=== PATIENT | male | born 1970 | race Hispanic/Latino ===

== ENCOUNTER 2020-02-27 22:43 | Emergency (ER) | payer OTHER, SELFPAY ==
[2020-02-27 22:50] VITALS: BP 146/85; PULSE 81; RESP 16; TEMP 36.4; O2SAT 97; BMI 173.4
--- NOTE | 2020-02-27 22:50 | ED_ITS ---
HPI - Chest Pain General Chief Complaint: Chest Pain Stated Complaint: Chest pain Time Seen by Provider: 02/27/20 22:49 Source: patient and family Mode of arrival: Ambulatory Limitations: no limitations History of Present Illness HPI narrative: 49-year-old male former smoker with a history of pericarditis and gallbladder disease presents with his in the chief complaint 2 weeks of sharp and stabbing right-sided chest pain in the absence of other symptoms. He states his pain is worse with a big deep breath and sometimes with picking up heavy objects. He denies any shortness of breath. He denies any nausea or vomiting. He denies any unexplained diaphoresis. He has had no history of blood clot or recent travel. Patient states that this feels different thin his pericarditis 1 year ago. He denies any exertional symptoms. MD complaint: chest pain Onset (ago): week(s) Duration: intermittent Pain location: right chest Severity: mild Quality: sharp Pain radiation: none Relieving factors: remaining still Exacerbating factors: inspiration and movement Treatments prior to arrival chest pain: none Related Data Allergies Allergy/AdvReac Type Severity Reaction Status Date / Time ibuprofen Allergy Verified 02/27/20 23:06 tramadol Allergy Verified 02/27/20 23:14 Review of Systems Constitutional Constitutional: Denies chills, Denies fatigue, Denies fever(s), Denies frequent falls, Denies lethargy and Denies weakness Eyes Eyes: Denies change in vision, Denies eye discharge, Denies irritation and Denies loss of vision ENT Ears, Nose, Mouth, and Throat: Denies change in voice, Denies dizziness, Denies neck pain, Denies sore throat and Denies throat swelling Cardiovascular Cardiovascular: Reports chest pain, Denies irregular heart rhythm, Denies lightheadedness, Denies palpitations, Denies dyspnea, Denies dyspnea on exertion and Denies orthopnea Respiratory Respiratory: Denies cough, Denies dyspnea, Denies dyspnea on exertion and Denies wheezing Gastrointestinal Gastrointestinal: Denies abdominal pain, Denies change in bowel habits, Denies diarrhea, Denies nausea and Denies vomiting Genitourinary Genitourinary: Denies hematuria, Denies flank pain, Denies urinary incontinence and Denies urinary urgency Musculoskeletal Musculoskeletal: Denies back pain, Denies muscle weakness, Denies neck pain, Denies numbness and Denies tingling Integumentary/Breasts Skin/Breast: Denies pruritus, Denies erythema, Denies rash and Denies wounds Neurologic Neurologic: Denies behavioral changes, Denies confusion, Denies dizziness, Denies frequent falls, Denies loss of vision, Denies numbness, Denies tingling and Denies weakness Psychiatric Psychiatric: Denies anxiety, Denies behavioral changes, Denies confusion, Denies depression, Denies homicidal ideation and Denies suicidal ideation Endocrine Endocrine: Denies fatigue, Denies flushing and Denies palpitations Hematologic/Lymphatic Hematologic/Lymphatic: Denies easy bruising Allergic/Immunologic Allergic/Immunologic: Denies urticaria, Denies throat swelling and Denies wheezing Patient History Medical History (Updated 02/28/20 @ 00:05 by Geovany Poe DO) Pericarditis (Acute) Social History Smoking Status: Former smoker Exam Narrative Exam Narrative: GENERAL: [49] year old patient appears stated age. Well- nourished, well-developed patient, in mild distress. HEAD: Atraumatic. Normocephalic. EYES: Pupils equal round and reactive. Extraocular motions intact. No scleral ic terus. No injection or drainage. ENT: Nose without bleeding, purulent drainage. Throat without erythema, tonsillar hypertrophy or exudate. Airway patent. NECK: Trachea midline. Non tender CARDIOVASCULAR: Regular rate and rhythm without murmurs, gallops, or rubs. RESPIRATORY: Clear to auscultation. Breath sounds equal bilaterally. No wheezes, rales, or rhonchi. GASTROINTESTINAL: Abdomen soft, non-tender, nondistended. EXTREMITIES: No edema or joint tenderness. BACK: Nontender without deformity or crepitance. No flank tenderness. NEURO: AOx3. SKIN: No rash or erythema of visible areas Initial Vital Signs Initial Vital Signs: Vital Signs Temperature 97.6 F 02/27/20 22:50 Pulse Rate 81 02/27/20 22:50 Respiratory Rate 16 02/27/20 22:50 Blood Pressure 146/85 H 02/27/20 22:50 Pulse Oximetry 97 02/27/20 22:50 Scores HEART Score Heart Score history: Slightly Suspicious Heart Score EKG: Normal Heart Score Age: 45-64 years old Heart Score risk factors: 1-2 risk factors Heart Score troponin: < or = to normal limit Heart Score Total: 2 Course Orders Ordered: ED Orders 02/27/20 22:59 XR chest 1V Stat EKG-12 Lead Stat 02/27/20 23:00 Complete Blood Count AUTO DIFF Stat Comprehensive Metabolic Panel Stat D Dimer Stat Lipase Stat Troponin & CK Cardiac Panel Stat 02/27/20 23:59 EKG-12 Lead Stat Discontinued Medications Al Hydrox/Mg Hydrox/Simethicone 20 ml/ Lidocaine HCl 15 ml 0 ml PO NOW ONE Stop: 02/27/20 23:01 Last Admin: 02/27/20 23:24 Dose: 35 ml Documented by: EMMA Sodium Chloride (Normal Saline 0.9%) 1,000 mls @ 150 mls/hr IV CONT GIBRAN Last Infusion: 02/28/20 01:05 Dose: 0 mls/hr Documented by: Admin: 02/27/20 23:24 Dose: 150 mls/hr Documented by: EMMA Ketorolac Tromethamine (Toradol) 15 mg IV NOW ONE Stop: 02/27/20 23:00 Last Admin: 02/27/20 23:25 Dose: 15 mg Documented by: EMMA Pantoprazole Sodium (Protonix) 40 mg IV NOW ONE Stop: 02/27/20 23:00 Last Admin: 02/27/20 23:25 Dose: 40 mg Documented by: EMMA Vital Signs Vital signs: Vital Signs - 8 hr 02/27/20 22:50 02/28/20 00:59 Temperature 97.6 F Pulse Rate 81 56 L Respiratory Rate 16 12 Blood Pressure 146/85 H Blood Pressure [Left Arm] 112/62 Pulse Oximetry 97 95 MDM - Chest Pain Lab Data Result diagrams: 02/27/20 23:00 02/27/20 23:00 Labs: Lab Results 02/27/20 02/27/20 02/27/20 Range/Units 23:00 23:00 23:00 WBC 9.7 (4.5-11.0) X10^3/uL RBC 4.98 (4.5-5.9) X10^6/uL Hgb 15.0 (13.5-17.5) g/dL Hct 43.9 (41-53) % MCV 88.2 (80-100) fL MCH 30.2 (26-34) PG MCHC 34.2 (30-36) % RDW 13.1 (11.6-14.8) % Plt Count 222 (150-400) X10^3/uL Neut % (Auto) 59.1 (50-75) % Lymph % (Auto) 27.0 (25-40) % [place] % (Auto) 11.9 (3-14) % Eos % (Auto) 1.6 L (2-4) % Baso % (Auto) 0.4 (0-2) % Neut # (Auto) 5700 (2293-0782) /uL Lymph # (Auto) 2600 (8543-8426) /uL [place] # (Auto) 1200 H (0-900) /uL Eos # (Auto) 200 (0-450) /uL Baso # (Auto) 0 (0-100) /uL D-Dimer < 200 (<230) ng/mL Sodium 137 (137-145) mmol/L Potassium 4.1 (3.4-5.1) mmol/L Chloride 104 (98-107) mmol/L Carbon Dioxide 25 (22-32) mmol/L BUN 23 H (9-20) mg/dL Creatinine 0.99 (0.66-1.25) mg/dL Estimated GFR > 60.0 (>60) mL/min BUN/Creatinine Ratio 23.2 H (6-22) Glucose 91 (70-100) mg/dL Calcium 9.5 (8.4-10.2) mg/dL Total Bilirubin 0.3 (0.2-1.3) mg/dL AST 26 (17-59) IU/L ALT 32 (<50) IU/L Alkaline Phosphatase 70 (38-126) U/L Total Creatine Kinase 161 (55-170) U/L CK-MB (CK-2) 1.74 (<2.37) ng/mL CK-MB (CK-2) Rel Index 1.1 L (1.5-5.0) % Troponin I < 0.012 (0.01-0.034) ng/mL Total Protein 7.3 (6.3-8.2) g/dL Albumin 4.4 (3.5-5.0) g/dL Globulin 2.9 (1.7-4.1) g/dL Albumin/Globulin Ratio 1.5 (1.0-2.8) Lipase 108 (23-300) U/L Imaging Data Chest x-ray: Attestation: I personally reviewed and interpreted this imaging study as follows: My Impression: NAP ECG Data Attestation: I personally reviewed and interpreted this ECG as follows: Interpretation: EKG is normal sinus rhythm rate [72 ] and free of any signs of ectopy. No ST segmental elevations or depressions. EKG #2 unchanged MDM Narrative Medical decision making narrative: Multiple causes of chest pain considered including AL, PE, pneumothorax, pneumonia, aortic dissection, and pleurisy. Patient reports no radiation, no diaphoresis, no provocation with exertion, and no vomiting Patient is sharp and stabbing and worse with deep breath. Pleurisy, pneumonia, pneumothorax, PE considered but thought less likely given history and labs. Discharge Plan Departure Patient Disposition: Home Clinical Impression: Atypical chest pain Discharge Date/Time: 02/28/20 01:08 Instructions: DI for Atypical Chest Pain Activity Restrictions/Additional Instructions: *You have been diagnosed with [ atypical chest pain. Heart attack, pericarditis, clot in chest, and other diagnoses considered, but thought unlikely given the results of your tests ] *What to do: *Take medications as directed *Follow up with your primary care provider in 2-3 days, call for an appoi ntment. Let them know you were seen in the Emergency Department and that we ask that you be seen in follow up *Return to ER if you should have any new, worsening or concerning symptoms
--- NOTE | 2020-02-27 22:59 | DI.RAD.S_ITS ---
PROCEDURE: XR CHEST 1V INDICATIONS: chest pain TECHNIQUE: One view of the chest was acquired. COMPARISON: [facility], CR, XR CHEST 1 VIEW, 09/14/2019, 15:04. FINDINGS: Surgical changes and devices: None. Lungs and pleura: A vague area of linear increased density is identified within the mid aspect of the mid to lateral right lung. This is new since the prior study. Increasing density within the left upper lobe is identified, which is also new. There is no effusion or pneumothorax. Mediastinum: Mediastinal contours appear normal. Heart size is normal. Bones and chest wall: No suspicious bony lesions. Overlying soft tissues appear unremarkable. IMPRESSION: Vague areas of increased density within the lateral mid right lung and the superior left lung is nonspecific and may represent atelectasis versus pneumonia. Please correlate clinically. Dictated by: Roldan Ray M.D. on 02/27/2020 at 23:58 Approved by: Roldan Ray M.D. on 02/27/2020 at 23:59
[2020-02-27 23:08] LABS: Add Manual Diff / Slide Review NO; Basophils Absolute Auto 0 /uL (0-100); Basophils Percent Auto 0.4 % (0-2); Eosinophils Absolute Auto 200 /uL (0-450); Eosinophils Percent Auto 1.6 % (2-4); Hematocrit 43.9 % (41-53); Lymphocytes Absolute Auto 2600 /uL (1100-4500); Mean Corpuscular HGB Conc 34.2 % (30-36); Mean Corpuscular Hemoglobin 30.2 PG (26-34); Mean Corpuscular Volume 88.2 fL (80-100); Monocytes Absolute Auto 1200 /uL (0-900); Monocytes Percent Auto 11.9 % (3-14); Neutrophils Absolute Auto 5700 /uL (1500-7000); Neutrophils Percent Auto 59.1 % (50-75); Platelet Count 222 X10^3/uL (150-400); Red Blood Cell Count 4.98 X10^6/uL (4.5-5.9); Red Cell Distribution Width 13.1 % (11.6-14.8); White Blood Cell Count 9.7 X10^3/uL (4.5-11.0)
[2020-02-27 23:16] LABS: Alanine Aminotransferase 32 IU/L (<50); Albumin 4.4 g/dL (3.5-5.0); Albumin Globulin Ratio 1.5 (1.0-2.8); Alkaline Phosphatase 70 U/L (38-126); Aspartate Aminotransferase 26 IU/L (17-59); BUN Creatinine Ratio 23.2 (6-22); Bilirubin Total 0.3 mg/dL (0.2-1.3); Blood Urea Nitrogen 23 mg/dL (9-20); Calcium 9.5 mg/dL (8.4-10.2); Carbon Dioxide 25 mmol/L (22-32); Chloride 104 mmol/L (98-107); Creatine Kinase 161 U/L (55-170); Estimated Glomerular Filt Rate > 60.0 mL/min (>60); Globulin 2.9 g/dL (1.7-4.1); Glucose 91 mg/dL (70-100); HEMOLYSIS < 15 (0-50); Lipase 108 U/L (23-300); Potassium 4.1 mmol/L (3.4-5.1); Sodium 137 mmol/L (137-145); Total Protein 7.3 g/dL (6.3-8.2)
[2020-02-27] MEDS: SODIUM CHLORIDE 0.9% 1,000 ML 150 ML IV (23:24)
[2020-02-27] MEDS: MAG HYDROX/ALUMINUM/SIMETH SUS 20 ML, LIDOCAINE VISCOUS 2% 15 ML PO (23:24)
[2020-02-27] MEDS: PANTOPRAZOLE 40 MG VIAL IV (23:25)
[2020-02-27] MEDS: KETOROLAC 60 MG/2 ML VIAL 15 MG IV (23:25)
[2020-02-27 23:28] LABS: Troponin I < 0.012 ng/mL (0.01-0.034)
[2020-02-27 23:31] LABS: CKMB % Relative Index 1.1 % (1.5-5.0); Creatine Kinase MB 1.74 ng/mL (<2.37)
[2020-02-27 23:39] LABS: D Dimer < 200 ng/mL (<230)
[2020-02-28 00:59] VITALS: BP 112/62; PULSE 56; RESP 12; O2SAT 95
== END 2020-02-28 01:08 | disposition home or self-care (01) ==
PROVIDERS: Emergency Provider Emergency Medicine
DX: R07.89 Other chest pain (principal)
CPT/HCPCS: 36415; 71045; 80053; 82550; 82553; 83690; 84484; 85025; 85379; 93005; 96361; 96374; 96375; 99285; C9113; J1885

== ENCOUNTER 2020-03-24 17:20 | Emergency (ER) | payer OTHER, SELFPAY ==
[2020-03-24 17:36] VITALS: BP 140/74; PULSE 91; RESP 16; TEMP 37.2; O2SAT 97; BMI 26.3
--- NOTE | 2020-03-24 17:42 | DI.RAD.S_ITS ---
PROCEDURE: XR CHEST 1V INDICATIONS: chest pain TECHNIQUE: One view of the chest was acquired. COMPARISON: [facility], CR, XR CHEST 1V, 02/27/2020, 23:01. FINDINGS: Surgical changes and devices: None. Lungs and pleura: Lungs are clear. No pleural effusions or pneumothorax. Mediastinum: Mediastinal contours appear normal. Heart size is normal. Bones and chest wall: No suspicious bony lesions. Overlying soft tissues appear unremarkable. IMPRESSION: No evidence acute pulmonary process. Dictated by: Hayden Arnett M.D. on 03/24/2020 at 18:32 Approved by: Hayden Arnett M.D. on 03/24/2020 at 18:32
[2020-03-24 18:03] LABS: Add Manual Diff / Slide Review NO; Basophils Absolute Auto 0 /uL (0-100); Basophils Percent Auto 0.2 % (0-2); Eosinophils Absolute Auto 0 /uL (0-450); Eosinophils Percent Auto 0.1 % (2-4); Hematocrit 43.8 % (41-53); Hemoglobin 15.4 g/dL (13.5-17.5); Lymphocytes Absolute Auto 1600 /uL (1100-4500); Lymphocytes Percent Auto 14.8 % (25-40); Mean Corpuscular HGB Conc 35.2 % (30-36); Mean Corpuscular Volume 88.1 fL (80-100); Monocytes Absolute Auto 800 /uL (0-900); Monocytes Percent Auto 7.4 % (3-14); Neutrophils Absolute Auto 8400 /uL (1500-7000); Neutrophils Percent Auto 77.5 % (50-75); Platelet Count 239 X10^3/uL (150-400); Red Blood Cell Count 4.97 X10^6/uL (4.5-5.9); Red Cell Distribution Width 13.1 % (11.6-14.8); White Blood Cell Count 10.9 X10^3/uL (4.5-11.0)
[2020-03-24 18:08] LABS: Prothrombin Time 11.9 SECONDS (10.1-12.7)
[2020-03-24 18:10] LABS: PTT Partial Thromboplastin Tim 33 SECONDS (26.4-36.2)
[2020-03-24 18:12] LABS: Alanine Aminotransferase 41 IU/L (<50); Albumin 4.7 g/dL (3.5-5.0); Albumin Globulin Ratio 1.6 (1.0-2.8); Alkaline Phosphatase 68 U/L (38-126); Aspartate Aminotransferase 29 IU/L (17-59); BUN Creatinine Ratio 16.8 (6-22); Bilirubin Total 0.4 mg/dL (0.2-1.3); Blood Urea Nitrogen 16 mg/dL (9-20); Calcium 10.1 mg/dL (8.4-10.2); Carbon Dioxide 26 mmol/L (22-32); Chloride 105 mmol/L (98-107); Creatine Kinase 219 U/L (55-170); Estimated Glomerular Filt Rate > 60.0 mL/min (>60); Glucose 102 mg/dL (70-100); HEMOLYSIS < 15 (0-50); Lipase 52 U/L (23-300); Potassium 4.2 mmol/L (3.4-5.1); Sodium 138 mmol/L (137-145); Total Protein 7.7 g/dL (6.3-8.2)
[2020-03-24 18:24] LABS: Troponin I < 0.012 ng/mL (0.01-0.034)
[2020-03-24 18:27] LABS: CKMB % Relative Index 1.3 % (1.5-5.0); Creatine Kinase MB 2.77 ng/mL (<2.37)
[2020-03-24 20:05] VITALS: BP 136/74; PULSE 88; RESP 15; O2SAT 98
[2020-03-24 20:26] LABS: Troponin I < 0.012 ng/mL (0.01-0.034)
--- NOTE | 2020-03-24 20:39 | ED_ITS ---
HPI - Dizziness <ALEXI Kessler - Last Filed: 03/24/20 20:52> General Chief Complaint: Dizziness Stated Complaint: heart feels like its popping out, dizziness,nausea Time Seen by Provider: 03/24/20 19:10 Source: patient and family Mode of arrival: Ambulatory Limitations: no limitations History of Present Illness HPI Narrative: The patient is a 49 year old male former smoker with history of gallbladder disease who presents with a chief complaint of dizziness. He states this started yesterday. Saturday night he started taking diltiazem 30 mg q.i.d., and then he felt dizzy on Saturday into today. He states that he does not have any chest pain or shortness of breath. He states he just feels dizzy when getting up since he started the new medication. He denies any pain. He denies any cough congestion fevers nausea vomiting or diarrhea. He states that he has on diltiazem 30 mg q.i.d. for GERD. He states it feels better since he stopped taking his diltiazem. Related Data Allergies Allergy/AdvReac Type Severity Reaction Status Date / Time ibuprofen Allergy Verified 02/27/20 23:06 tramadol Allergy Verified 02/27/20 23:14 Review of Systems <ALEXI Kessler - Last Filed: 03/24/20 20:52> Review of Systems Narrative: GENERAL: Denies chills, fatigue, malaise, fever, sweats. HEENT: Denies sinus pain, ear pain, sore throat, difficulty swallowing, dizziness. RESPIRATORY: Denies dyspnea, cough, wheezing, hemoptysis, sputum. CARDIOVASCULAR: Denies chest pain, palpitations, orthopnea, edema, GASTROINTESTINAL: Denies nausea, vomiting, abdominal pain, diarrhea, constipation, melena. : Denies dysuria, frequency, incontinence, hematuria, urinary retention. MUSCULOSKELETAL: denies weakness, joint pain, or bony pain SKIN: Denies rash, skin lesions, or other NEUROLOGIC: See HPI PSYCHIATRIC: No concerning psychosocial issues. 12 point review of systems is negative except for those stated above Patient History <ALEXI Kessler - Last Filed: 03/24/20 20:52> Medical History Pericarditis (Acute) Social History Smoking Status: Former smoker Smoking Status: Former smoker alcohol intake frequency: 0-2 drinks per day Exam <ALEXI Kessler - Last Filed: 03/24/20 20:52> Narrative Exam Narrative: GENERAL: This is a well-nourished, well-developed patient, in no acute distress HEAD: Atraumatic. Normocephalic. No temporal or scalp tenderness. EYES: Pupils equal round and reactive. Extraocular motions intact. No scleral icterus. No injection or drainage. ENT: Nose without bleeding, purulent drainage or septal hematoma. Throat without erythema, tonsillar hypertrophy or exudate. Uvula midline. Airway patent. NECK: Trachea midline. No JVD or lymphadenopathy. Supple, nontender, no meningeal signs. CARDIOVASCULAR: Regular rate and rhythm RESPIRATORY: Clear to auscultation. Breath sounds equal bilaterally. No wheezes, rales, or rhonchi. No cough. No increased respiratory effort. No accessory muscle use. GASTROINTESTINAL: Abdomen soft, non-tender, nondistended. No hepato- splenomegaly, or palpable masses. No guarding. EXTREMITIES: No clubbing, cyanosis, or edema. No joint tenderness, effusion, or edema noted. BACK: Nontender without deformity or crepitance. No flank tenderness. NEURO: AOx3. SKIN: No rash or erythema on visible skin Initial Vital Signs Initial Vital Signs: Vital Signs Temperature 98.9 F 03/24/20 17:36 Pulse Rate 91 H 03/24/20 17:36 Respiratory Rate 16 03/24/20 17:36 Blood Pressure 140/74 03/24/20 17:36 Pulse Oximetry 97 03/24/20 17:36 <Desiree Kamara MD - Last Filed: 03/25/20 00:45> Initial Vital Signs Initial Vital Signs: Vital Signs Temperature 98.9 F 03/24/20 17:36 Pulse Rate 91 H 03/24/20 17:36 Respiratory Rate 16 03/24/20 17:36 Blood Pressure 140/74 03/24/20 17:36 Pulse Oximetry 97 03/24/20 17:36 Scores <ALEXI Kessler - Last Filed: 03/24/20 20:52> GCS [place] coma scale eye opening: Spontaneous [place] coma scale verbal response: Orientated Andrea coma scale motor response: Obey commands Andrea coma scale total score: 15 Course <ALEXI Kessler - Last Filed: 03/24/20 20:52> Orders Ordered: ED Orders 03/24/20 17:42 XR chest 1V Stat EKG-12 Lead Stat 03/24/20 17:55 Complete Blood Count AUTO DIFF Stat Comprehensive Metabolic Panel Stat Lipase Stat Partial Thromboplastin Time Stat Prothrombin Time INR Stat Troponin & CK Cardiac Panel Stat 03/24/20 19:52 Troponin I Stat Vital Signs Vital signs: Vital Signs - 8 hr 03/24/20 17:36 03/24/20 20:05 Temperature 98.9 F Pulse Rate 91 H 88 Respiratory Rate 16 15 Blood Pressure 140/74 Blood Pressure [Left Arm] 136/74 Pulse Oximetry 97 98 <Desiree Kamara MD - Last Filed: 03/25/20 00:45> Orders Ordered: ED Orders 03/24/20 17:42 XR chest 1V Stat EKG-12 Lead Stat 03/24/20 17:55 Complete Blood Count AUTO DIFF Stat Comprehensive Metabolic Panel Stat Lipase Stat Partial Thromboplastin Time Stat Prothrombin Time INR Stat Troponin & CK Cardiac Panel Stat 03/24/20 19:52 Troponin I Stat Vital Signs Vital signs: Vital Signs - 8 hr 03/24/20 17:36 03/24/20 20:05 Temperature 98.9 F Pulse Rate 91 H 88 Respiratory Rate 16 15 Blood Pressure 140/74 Blood Pressure [Left Arm] 136/74 Pulse Oximetry 97 98 MDM - Dizziness <ALEXI Kessler - Last Filed: 03/24/20 20:52> Differential Diagnosis Differential diagnosis: Likely adverse reaction to drug and orthostatic hypotension Lab Data Result diagrams: 03/24/20 17:55 03/24/20 17:55 Labs: Lab Results 03/24/20 03/24/20 03/24/20 Range/Units 17:55 17:55 17:55 WBC 10.9 (4.5-11.0) X10^3/uL RBC 4.97 (4.5-5.9) X10^6/uL Hgb 15.4 (13.5-17.5) g/dL Hct 43.8 (41-53) % MCV 88.1 (80-100) fL MCH 31.0 (26-34) PG MCHC 35.2 (30-36) % RDW 13.1 (11.6-14.8) % Plt Count 239 (150-400) X10^3/uL Neut % (Auto) 77.5 H (50-75) % Lymph % (Auto) 14.8 L (25-40) % [place] % (Auto) 7.4 (3-14) % Eos % (Auto) 0.1 L (2-4) % Baso % (Auto) 0.2 (0-2) % Neut # (Auto) 8400 H (7238-9186) /uL Lymph # (Auto) 1600 (5027-8924) /uL [place] # (Auto) 800 (0-900) /uL Eos # (Auto) 0 (0-450) /uL Baso # (Auto) 0 (0-100) /uL PT 11.9 (10.1-12.7) SECONDS INR 1.0 (0.9-1.3) APTT 33 (26.4-36.2) SECONDS Sodium 138 (137-145) mmol/L Potassium 4.2 (3.4-5.1) mmol/L Chloride 105 (98-107) mmol/L Carbon Dioxide 26 (22-32) mmol/L BUN 16 (9-20) mg/dL Creatinine 0.95 (0.66-1.25) mg/dL Estimated GFR > 60.0 (>60) mL/min BUN/Creatinine Ratio 16.8 (6-22) Glucose 102 H (70-100) mg/dL Calcium 10.1 (8.4-10.2) mg/dL Total Bilirubin 0.4 (0.2-1.3) mg/dL AST 29 (17-59) IU/L ALT 41 (<50) IU/L Alkaline Phosphatase 68 (38-126) U/L Total Creatine Kinase 219 H (55-170) U/L CK-MB (CK-2) 2.77 H (<2.37) ng/mL CK-MB (CK-2) Rel Index 1.3 L (1.5-5.0) % Troponin I < 0.012 (0.01-0.034) ng/mL Total Protein 7.7 (6.3-8.2) g/dL Albumin 4.7 (3.5-5.0) g/dL Globulin 3.0 (1.7-4.1) g/dL Albumin/Globulin Ratio 1.6 (1.0-2.8) Lipase 52 (23-300) U/L 03/24/20 Range/Units 19:52 WBC (4.5-11.0) X10^3/uL RBC (4.5-5.9) X10^6/uL Hgb (13.5-17.5) g/dL Hct (41-53) % MCV (80-100) fL MCH (26-34) PG MCHC (30-36) % RDW (11.6-14.8) % Plt Count (150-400) X10^3/uL Neut % (Auto) (50-75) % Lymph % (Auto) (25-40) % [place] % (Auto) (3-14) % Eos % (Auto) (2-4) % Baso % (Auto) (0-2) % Neut # (Auto) (5050-8988) /uL Lymph # (Auto) (7134-5541) /uL [place] # (Auto) (0-900) /uL Eos # (Auto) (0-450) /uL Baso # (Auto) (0-100) /uL PT (10.1-12.7) SECONDS INR (0.9-1.3) APTT (26.4-36.2) SECONDS Sodium (137-145) mmol/L Potassium (3.4-5.1) mmol/L Chloride (98-107) mmol/L Carbon Dioxide (22-32) mmol/L BUN (9-20) mg/dL Creatinine (0.66-1.25) mg/dL Estimated GFR (>60) mL/min BUN/Creatinine Ratio (6-22) Glucose (70-100) mg/dL Calcium (8.4-10.2) mg/dL Total Bilirubin (0.2-1.3) mg/dL AST (17-59) IU/L ALT (<50) IU/L Alkaline Phosphatase (38-126) U/L Total Creatine Kinase (55-170) U/L CK-MB (CK-2) (<2.37) ng/mL CK-MB (CK-2) Rel Index (1.5-5.0) % Troponin I < 0.012 (0.01-0.034) ng/mL Total Protein (6.3-8.2) g/dL Albumin (3.5-5.0) g/dL Globulin (1.7-4.1) g/dL Albumin/Globulin Ratio (1.0-2.8) Lipase (23-300) U/L Imaging Data Chest x-ray: Radiologist's Impression: [address] [place] [id number] XRay Report Signed Patient: Violetta Armendariz#: [id number] : 1970Acct:[id number] Age/Sex: 49 / MDate of Service: 03/24/20 Loc: ED Accession Number: [id number] Procedure: XR chest 1V Ordering Provider: Kathrin Yoo D.O. PROCEDURE: XR CHEST 1V INDICATIONS: chest pain TECHNIQUE: One view of the chest was acquired. COMPARISON: [facility], , XR CHEST 1V, 02/27/2020, 23:01. FINDINGS: Surgical changes and devices: None. Lungs and pleura: Lungs are clear. No pleural effusions or pneumothorax. Mediastinum: Mediastinal contours appear normal. Heart size is normal. Bones and chest wall: No suspicious bony lesions. Overlying soft tissues appear unremarkable. IMPRESSION: No evidence acute pulmonary process. Dictated by: Hayden Arnett M.D. on 03/24/2020 at 18:32 Approved by: Hayden Arnett M.D. on 03/24/2020 at 18:32 ECG Data Attestation: I personally reviewed and interpreted this ECG as follows: Interpretation: Sinus rhythm. Ventricular rate 67. P.r. interval 162. QRS 76. viewed by Dr Yoo MDM Narrative Medical decision making narrative: The patient is a 49-year-old male who presents with a chief complaint of dizziness after starting a new medication. He recently started diltiazem 30 mg q.i.d. and states he started feeling dizzy the day after starting this medication. His initial troponin is negative, chest x-ray is no acute findings, repeat troponin negative. He feels much improved throughout stay in the emergency department. It is likely that this dose of diltiazem is causing his dizziness at this point time. I discussed at length following up with his jewelry consultant regarding this medication and suggested holding off on it for the time being. The patient is without pain or complaints throughout his stay in the emergency department. I discussed at length following up with primary care provider as well. Patient has no questions or concerns upon discharge and states understanding of return precautions as well as follow-up care. <Desiree Kamara MD - Last Filed: 03/25/20 00:45> Lab Data Labs: Lab Results 03/24/20 03/24/20 03/24/20 Range/Units 17:55 17:55 17:55 WBC 10.9 (4.5-11.0) X10^3/uL RBC 4.97 (4.5-5.9) X10^6/uL Hgb 15.4 (13.5-17.5) g/dL Hct 43.8 (41-53) % MCV 88.1 (80-100) fL MCH 31.0 (26-34) PG MCHC 35.2 (30-36) % RDW 13.1 (11.6-14.8) % Plt Count 239 (150-400) X10^3/uL Neut % (Auto) 77.5 H (50-75) % Lymph % (Auto) 14.8 L (25-40) % [place] % (Auto) 7.4 (3-14) % Eos % (Auto) 0.1 L (2-4) % Baso % (Auto) 0.2 (0-2) % Neut # (Auto) 8400 H (5915-3374) /uL Lymph # (Auto) 1600 (0824-6575) /uL [place] # (Auto) 800 (0-900) /uL Eos # (Auto) 0 (0-450) /uL Baso # (Auto) 0 (0-100) /uL PT 11.9 (10.1-12.7) SECONDS INR 1.0 (0.9-1.3) APTT 33 (26.4-36.2) SECONDS Sodium 138 (137-145) mmol/L Potassium 4.2 (3.4-5.1) mmol/L Chloride 105 (98-107) mmol/L Carbon Dioxide 26 (22-32) mmol/L BUN 16 (9-20) mg/dL Creatinine 0.95 (0.66-1.25) mg/dL Estimated GFR > 60.0 (>60) mL/min BUN/Creatinine Ratio 16.8 (6-22) Glucose 102 H (70-100) mg/dL Calcium 10.1 (8.4-10.2) mg/dL Total Bilirubin 0.4 (0.2-1.3) mg/dL AST 29 (17-59) IU/L ALT 41 (<50) IU/L Alkaline Phosphatase 68 (38-126) U/L Total Creatine Kinase 219 H (55-170) U/L CK-MB (CK-2) 2.77 H (<2.37) ng/mL CK-MB (CK-2) Rel Index 1.3 L (1.5-5.0) % Troponin I < 0.012 (0.01-0.034) ng/mL Total Protein 7.7 (6.3-8.2) g/dL Albumin 4.7 (3.5-5.0) g/dL Globulin 3.0 (1.7-4.1) g/dL Albumin/Globulin Ratio 1.6 (1.0-2.8) Lipase 52 (23-300) U/L 03/24/20 Range/Units 19:52 WBC (4.5-11.0) X10^3/uL RBC (4.5-5.9) X10^6/uL Hgb (13.5-17.5) g/dL Hct (41-53) % MCV (80-100) fL MCH (26-34) PG MCHC (30-36) % RDW (11.6-14.8) % Plt Count (150-400) X10^3/uL Neut % (Auto) (50-75) % Lymph % (Auto) (25-40) % [place] % (Auto) (3-14) % Eos % (Auto) (2-4) % Baso % (Auto) (0-2) % Neut # (Auto) (6723-5887) /uL Lymph # (Auto) (8419-2399) /uL [place] # (Auto) (0-900) /uL Eos # (Auto) (0-450) /uL Baso # (Auto) (0-100) /uL PT (10.1-12.7) SECONDS INR (0.9-1.3) APTT (26.4-36.2) SECONDS Sodium (137-145) mmol/L Potassium (3.4-5.1) mmol/L Chloride (98-107) mmol/L Carbon Dioxide (22-32) mmol/L BUN (9-20) mg/dL Creatinine (0.66-1.25) mg/dL Estimated GFR (>60) mL/min BUN/Creatinine Ratio (6-22) Glucose (70-100) mg/dL Calcium (8.4-10.2) mg/dL Total Bilirubin (0.2-1.3) mg/dL AST (17-59) IU/L ALT (<50) IU/L Alkaline Phosphatase (38-126) U/L Total Creatine Kinase (55-170) U/L CK-MB (CK-2) (<2.37) ng/mL CK-MB (CK-2) Rel Index (1.5-5.0) % Troponin I < 0.012 (0.01-0.034) ng/mL Total Protein (6.3-8.2) g/dL Albumin (3.5-5.0) g/dL Globulin (1.7-4.1) g/dL Albumin/Globulin Ratio (1.0-2.8) Lipase (23-300) U/L Discharge Plan Departure Patient Disposition: Home Clinical Impression: Dizziness Adverse reaction to drug Qualifiers: Encounter type: initial encounter Qualified Code(s): T50.905A - Adverse effect of unspecified drugs, medicaments and biological substances, initial encounter Discharge Date/Time: 03/24/20 21:00 Instructions: DI for Adverse Drug Reaction -- Other, DI for Dizziness- Nonvertigo Activity Restrictions/Additional Instructions: Thank you for trusting us with your care today Please follow-up with your GI provider as well as your primary care provider I believe it is likely that starting your diltiazem 4 times a day has likely made you dizzy. I suggest holding off on this medication for now and following up with primary care provider as well as your jewelry consultant. Please come back to the emergency department for any acute concerns such as chest pain, shortness of breath etcetera Referrals: Latanya Lyon PA-C [Non-Staff] - <Desiree Kamara MD - Last Filed: 03/25/20 00:45> Cosign ED Attending Lizethature Attestation: I was immediately available in the department for consultation throughout this patient's visit. I agree with documentation as above. Desiree Kamara MD
--- NOTE | 2020-03-24 20:44 | PC.NURSE ---
Pt was recently seen in ED for biliary colic. was sent to [facility] outpatient to have a biliary scan. followed up with gastro who placed him on diltiazem 30mg QID for his GERD. Pt started taking RX yesterday. today with nausea and dizziness. BP and HR WNL. denies CP/SOB.
== END 2020-03-24 21:00 | disposition home or self-care (01) ==
PROVIDERS: Emergency Medicine; Emergency Provider Nurse Practitioner Family
DX: R42 Dizziness and giddiness (principal); T50.905A Adverse effect of unspecified drugs, medicaments and biological substances, initial encounter; R07.9 Chest pain, unspecified
CPT/HCPCS: 36415; 71045; 80053; 82550; 82553; 83690; 84484; 85025; 85610; 85730; 93005; 99283; 99284

== ENCOUNTER 2020-03-28 11:06 | Emergency (ER) | payer OTHER, SELFPAY ==
[2020-03-28 11:12] VITALS: BP 156/90; PULSE 99; RESP 26; TEMP 36.6; O2SAT 100; BMI 26.4
--- NOTE | 2020-03-28 11:13 | DI.RAD.S_ITS ---
PROCEDURE: XR CHEST 1V INDICATIONS: chest pain TECHNIQUE: One view of the chest was acquired. COMPARISON: [facility], CR, XR CHEST 1V, 03/24/2020, 18:11. FINDINGS: Surgical changes and devices: None. Lungs and pleura: Lungs are clear. No pleural effusions or pneumothorax. Mediastinum: Mediastinal contours appear normal. Heart size is normal. Bones and chest wall: No suspicious bony lesions. Overlying soft tissues appear unremarkable. IMPRESSION: No acute cardiopulmonary pathology. Dictated by: Saurav Hogue M.D. on 03/28/2020 at 12:21 Approved by: Saurav Hogue M.D. on 03/28/2020 at 12:21
[2020-03-28 11:27] LABS: Add Manual Diff / Slide Review NO; Basophils Absolute Auto 0 /uL (0-100); Basophils Percent Auto 0.3 % (0-2); Eosinophils Absolute Auto 0 /uL (0-450); Eosinophils Percent Auto 0.2 % (2-4); Hematocrit 45.3 % (41-53); Hemoglobin 15.3 g/dL (13.5-17.5); Lymphocytes Absolute Auto 1300 /uL (1100-4500); Lymphocytes Percent Auto 15.3 % (25-40); Mean Corpuscular HGB Conc 33.9 % (30-36); Mean Corpuscular Hemoglobin 29.8 PG (26-34); Mean Corpuscular Volume 88.1 fL (80-100); Monocytes Absolute Auto 600 /uL (0-900); Monocytes Percent Auto 6.9 % (3-14); Neutrophils Absolute Auto 6700 /uL (1500-7000); Neutrophils Percent Auto 77.3 % (50-75); Platelet Count 245 X10^3/uL (150-400); Red Blood Cell Count 5.14 X10^6/uL (4.5-5.9); White Blood Cell Count 8.6 X10^3/uL (4.5-11.0)
[2020-03-28 11:34] LABS: Prothrombin Time 11.7 SECONDS (10.1-12.7)
[2020-03-28 11:36] LABS: PTT Partial Thromboplastin Tim 31 SECONDS (26.4-36.2)
[2020-03-28 11:38] LABS: Alanine Aminotransferase 32 IU/L (<50); Albumin 4.5 g/dL (3.5-5.0); Albumin Globulin Ratio 1.5 (1.0-2.8); Alkaline Phosphatase 78 U/L (38-126); Aspartate Aminotransferase 26 IU/L (17-59); BUN Creatinine Ratio 24.7 (6-22); Bilirubin Total 0.5 mg/dL (0.2-1.3); Blood Urea Nitrogen 22 mg/dL (9-20); Calcium 9.6 mg/dL (8.4-10.2); Carbon Dioxide 22 mmol/L (22-32); Chloride 107 mmol/L (98-107); Creatine Kinase 152 U/L (55-170); Estimated Glomerular Filt Rate > 60.0 mL/min (>60); Glucose 133 mg/dL (70-100); HEMOLYSIS < 15 (0-50); Lipase 76 U/L (23-300); Potassium 4.1 mmol/L (3.4-5.1); Sodium 137 mmol/L (137-145); Total Protein 7.5 g/dL (6.3-8.2)
[2020-03-28 11:45] LABS: Erythrocyte Sedimentation Rate 3 MM/HR (0-15)
[2020-03-28 11:47] LABS: C-Reactive Protein Quant < 0.5 mg/dL (<1.0)
[2020-03-28 11:49] LABS: Troponin I < 0.012 ng/mL (0.01-0.034)
[2020-03-28 11:53] LABS: CKMB % Relative Index 1.4 % (1.5-5.0); Creatine Kinase MB 2.09 ng/mL (<2.37)
--- NOTE | 2020-03-28 12:02 | ED_ITS ---
HPI - Chest Pain <Trudy Hope PA-C - Last Filed: 03/28/20 22:24> General Chief Complaint: Chest Pain Stated Complaint: chest pain Time Seen by Provider: 03/28/20 11:36 Source: patient Mode of arrival: Ambulatory Limitations: no limitations History of Present Illness HPI narrative: This is a 49-year-old gentleman with a history of gallbladder disease and recent amoeba infection treated with antibiotics who presents to the emergency department complaining of burning chest pain that began at around 9:00 a.m. this morning on the right side of his chest that radiates to his left chest and then back to the right chest, he says the pain is intermittent and it is at 3 or 4/10. He reports he has chronic gallbladder pain for the last 5 months and this is present today and it is not changed. He reports that he ate a lot of steak at a barbecue yesterday afternoon and he felt fine afterwards but this morning at 9:00 a.m. he developed burning chest pain. He also reports that last week he had dizziness for which he was seen in the emergency department, that had begun after he started taking diltiazem for his gallbladder symptoms/GERD. He also advises that in the last 6 weeks he was diagnosed with on an amoeba and took a 7 day course of antibiotics for this which seem to improve his GI symptoms including intermittent diarrhea, however in the last week or so he has been having diarrhea occasionally again including this morning and asks to be tested for an amoeba. He also advises that for a number of weeks he has been having discomfort when he swallows and a strange feeling in his throat, and that at 1 point a few weeks ago he literally could not drink any water because he felt like he could not swallow, he says a few weeks ago he had some coughing and was coughing up some clear phlegm. He advises he recently changed his PCP. He also advises he had a 3 hour gallbladder scan done on Saturday of last week but has not received any results back regarding this yet. He says he has taken medicine before for heartburn in the past including a lidocaine medicine that w as helpful, but that he did not have any improvement with his symptoms when he tried omeprazole, although he says he only took this for a couple of days because he felt like it was making the burning sensation worse. He denies shortness of breath, pain radiating to his back, neck or shoulder, palpitations, dizziness or lightheadedness, fever, chills, change in appetite, or any other symptoms. He has been eating and drinking normally. MD complaint: chest pain Onset (ago): hour(s) (3) Time: 09:00 Duration: intermittent Pain location: left chest, right chest and epigastric Severity: moderate Severity scale (1-10): 3 Quality: aching and other (burning) Pain radiation: none Relieving factors: nothing Exacerbating factors: palpation and movement Context: other (Chronic gallbladder pain) Associated symptoms: other (Denies nausea, vomiting, diaphoresis, dyspnea, synco pe palpitations fever cough or leg swelling.) Treatments prior to arrival chest pain: none Related Data Previous Rx's Medication Instructions Recorded omeprazole 20 mg PO DAILY #30 cap MDD 40 03/28/20 Allergies Allergy/AdvReac Type Severity Reaction Status Date / Time ibuprofen Allergy Verified 02/27/20 23:06 tramadol Allergy Verified 02/27/20 23:14 Review of Systems <Trudy Hope PA-C - Last Filed: 03/28/20 22:24> Review of Systems Narrative: GENERAL: Denies chills, fatigue, malaise, fever, sweats. HEENT: Denies sinus pain, ear pain, sore throat, difficulty swallowing, positive for dizziness for a day or 2 last week after starting a new medication. RESPIRATORY: Denies dyspnea, cough, wheezing, hemoptysis, sputum. CARDIOVASCULAR: Positive for chest pain, denies palpitations, orthopnea, edema, GASTROINTESTINAL: Denies nausea, vomiting, positive for abdominal pain in the epigastric area that is chronic, positive for occasional diarrhea including 1 episode this morning, negative for constipation, melena. : Denies dysuria, frequency, incontinence, hematuria, urinary retention. MUSCULOSKELETAL: denies weakness, joint pain, or bony pain SKIN: Denies rash, skin lesions, or other NEUROLOGIC: Denies weakness, headache, numbness, change in speech, confusion, seizures, incoordination. PSYCHIATRIC: No concerning psychosocial issues. 12 point review of systems is negative except for those stated above Patient History <Trudy Hope PA-C - Last Filed: 03/28/20 22:24> Medical History Pericarditis (Acute) Social History Smoking Status: Former smoker Smoking Status: Former smoker alcohol intake frequency: 0-2 drinks per day Substance Use Type: marijuana Exam <Trudy Hope PA-C - Last Filed: 03/28/20 22:24> Narrative Exam Narrative: GENERAL: 49 year old patient appears stated age. Well-nourished, well-developed patient, in mild distress. HEAD: Atraumatic. Normocephalic. EYES: Pupils equal round and reactive. Extraocular motions intact. No scleral icterus. No injection or drainage. ENT: Nose without bleeding, purulent drainage. Throat without, tonsillar hypertrophy, swelling, or exudate, throat is mildly erythematous. Airway patent. External ear canals are normal in appearance, tympanic membranes are pearly kaminski with cone of light visible bilaterally, without effusion or erythema. There is no lymphadenopathy present. NECK: Trachea midline. Non tender CARDIOVASCULAR: There are no carotid bruits, Regular rate and rhythm without murmurs, gallops, or rubs, distal pulses radial and posterior tibialis are strong and equal bilaterally 2+. RESPIRATORY: Clear to auscultation. Breath sounds equal bilaterally. No wheezes, rales, or rhonchi. GASTROINTESTINAL: Abdomen soft, there is mild epigastric tenderness, abdomen is otherwise non-tender, and is nondistended. EXTREMITIES: No edema or joint tenderness. BACK/CHEST: Back is Nontender without deformity or crepitance. No flank tenderness. There is tenderness to palpation of the anterior chest on the right side over the pectoral muscles, which worsens the patient's pain, however this pain feels different than the burning pain inside his chest. NEURO: AOx3. SKIN: No rash or erythema of visible areas Initial Vital Signs Initial Vital Signs: Vital Signs Temperature 97.9 F 03/28/20 11:12 Pulse Rate 99 H 03/28/20 11:12 Respiratory Rate 26 H 03/28/20 11:12 Blood Pressure 156/90 H 03/28/20 11:12 Pulse Oximetry 100 03/28/20 11:12 <Tai Ndiaye MD - Last Filed: 04/01/20 21:30> Initial Vital Signs Initial Vital Signs: Vital Signs Temperature 97.9 F 03/28/20 11:12 Pulse Rate 99 H 03/28/20 11:12 Respiratory Rate 26 H 03/28/20 11:12 Blood Pressure 156/90 H 03/28/20 11:12 Pulse Oximetry 100 03/28/20 11:12 Scores <Trudy Hope PA-C - Last Filed: 03/28/20 22:24> HEART Score Heart Score history: Slightly Suspicious Heart Score EKG: Normal Heart Score Age: 45-64 years old Heart Score risk factors: 1-2 risk factors Heart Score troponin: < or = to normal limit Heart Score Total: 2 Course <Trudy Hope PA-C - Last Filed: 03/28/20 22:24> Orders Ordered: Discontinued Medications Al Hydrox/Mg Hydrox/Simethicone 20 ml/ Lidocaine HCl 15 ml 0 ml PO NOW ONE Stop: 03/28/20 12:56 Last Admin: 03/28/20 13:20 Dose: 35 ml Documented by: RHINA Vital Signs Vital signs: Vital Signs - 8 hr 03/28/20 11:12 03/28/20 13:08 03/28/20 14:00 Temperature 97.9 F Pulse Rate 99 H 67 60 Respiratory Rate 26 H 12 18 Blood Pressure 156/90 H Blood Pressure [Right Arm] 123/72 115/67 Pulse Oximetry 100 98 97 <Tai Ndiaye MD - Last Filed: 04/01/20 21:30> Orders Ordered: Discontinued Medications Al Hydrox/Mg Hydrox/Simethicone 20 ml/ Lidocaine HCl 15 ml 0 ml PO NOW ONE Stop: 03/28/20 12:56 Last Admin: 03/28/20 13:20 Dose: 35 ml Documented by: RHINA Vital Signs Vital signs: Vital Signs - 8 hr 03/28/20 11:12 03/28/20 13:08 03/28/20 14:00 Temperature 97.9 F Pulse Rate 99 H 67 60 Respiratory Rate 26 H 12 18 Blood Pressure 156/90 H Blood Pressure [Right Arm] 123/72 115/67 Pulse Oximetry 100 98 97 MDM - Chest Pain <Trudy Hope PA-C - Last Filed: 03/28/20 22:24> Differential Diagnosis Differential diagnosis: Likely atypical chest pain, costochondritis, chest pain and biliary colic Medical Records Data Attestation: I reviewed the patient's medical records. Lab Data Attestation: I reviewed the patient's lab results. Result diagrams: 03/28/20 11:20 03/28/20 11:20 Labs: Lab Results 03/28/20 03/28/20 03/28/20 Range/Units 11:20 11:20 11:20 WBC 8.6 (4.5-11.0) X10^3/uL RBC 5.14 (4.5-5.9) X10^6/uL Hgb 15.3 (13.5-17.5) g/dL Hct 45.3 (41-53) % MCV 88.1 (80-100) fL MCH 29.8 (26-34) PG MCHC 33.9 (30-36) % RDW 13.0 (11.6-14.8) % Plt Count 245 (150-400) X10^3/uL Neut % (Auto) 77.3 H (50-75) % Lymph % (Auto) 15.3 L (25-40) % [place] % (Auto) 6.9 (3-14) % Eos % (Auto) 0.2 L (2-4) % Baso % (Auto) 0.3 (0-2) % Neut # (Auto) 6700 (8909-3662) /uL Lymph # (Auto) 1300 (8666-1705) /uL [place] # (Auto) 600 (0-900) /uL Eos # (Auto) 0 (0-450) /uL Baso # (Auto) 0 (0-100) /uL ESR 3 (0-15) MM/HR PT (10.1-12.7) SECONDS INR (0.9-1.3) APTT (26.4-36.2) SECONDS Sodium (137-145) mmol/L Potassium (3.4-5.1) mmol/L Chloride (98-107) mmol/L Carbon Dioxide (22-32) mmol/L BUN (9-20) mg/dL Creatinine (0.66-1.25) mg/dL Estimated GFR (>60) mL/min BUN/Creatinine Ratio (6-22) Glucose (70-100) mg/dL Calcium (8.4-10.2) mg/dL Total Bilirubin (0.2-1.3) mg/dL AST (17-59) IU/L ALT (<50) IU/L Alkaline Phosphatase (38-126) U/L Total Creatine Kinase (55-170) U/L CK-MB (CK-2) (<2.37) ng/mL CK-MB (CK-2) Rel Index (1.5-5.0) % Troponin I (0.01-0.034) ng/mL C-Reactive Protein < 0.5 (<1.0) mg/dL Total Protein (6.3-8.2) g/dL Albumin (3.5-5.0) g/dL Globulin (1.7-4.1) g/dL Albumin/Globulin Ratio (1.0-2.8) Lipase (23-300) U/L Urine Color Urine Appearance Urine pH (4.5-8.0) Ur Specific [place] (1.000-1.035) Urine Protein (Negative) Urine Glucose (UA) (Negative) g/dL Urine Ketones (NEGATIVE) Urine Occult Blood (Negative) Urine Nitrate (Negative) Urine Bilirubin (NEGATIVE) Urine Urobilinogen (0.2) E.U./dL Ur Leukocyte Esterase (NEGATIVE) Urine RBC (0-5/HPF) Urine WBC Urine Bacteria (None) Ur Culture Indicated? Micro UA Comment 03/28/20 03/28/20 03/28/20 Range/Units 11:20 11:20 12:13 WBC (4.5-11.0) X10^3/uL RBC (4.5-5.9) X10^6/uL Hgb (13.5-17.5) g/dL Hct (41-53) % MCV (80-100) fL MCH (26-34) PG MCHC (30-36) % RDW (11.6-14.8) % Plt Count (150-400) X10^3/uL Neut % (Auto) (50-75) % Lymph % (Auto) (25-40) % [place] % (Auto) (3-14) % Eos % (Auto) (2-4) % Baso % (Auto) (0-2) % Neut # (Auto) (4823-9877) /uL Lymph # (Auto) (4891-8889) /uL [place] # (Auto) (0-900) /uL Eos # (Auto) (0-450) /uL Baso # (Auto) (0-100) /uL ESR (0-15) MM/HR PT 11.7 (10.1-12.7) SECONDS INR 1.0 (0.9-1.3) APTT 31 D (26.4-36.2) SECONDS Sodium 137 (137-145) mmol/L Potassium 4.1 (3.4-5.1) mmol/L Chloride 107 (98-107) mmol/L Carbon Dioxide 22 (22-32) mmol/L BUN 22 H (9-20) mg/dL Creatinine 0.89 (0.66-1.25) mg/dL Estimated GFR > 60.0 (>60) mL/min BUN/Creatinine Ratio 24.7 H (6-22) Glucose 133 H (70-100) mg/dL Calcium 9.6 (8.4-10.2) mg/dL Total Bilirubin 0.5 (0.2-1.3) mg/dL AST 26 (17-59) IU/L ALT 32 (<50) IU/L Alkaline Phosphatase 78 (38-126) U/L Total Creatine Kinase 152 (55-170) U/L CK-MB (CK-2) 2.09 (<2.37) ng/mL CK-MB (CK-2) Rel Index 1.4 L (1.5-5.0) % Troponin I < 0.012 (0.01-0.034) ng/mL C-Reactive Protein (<1.0) mg/dL Total Protein 7.5 (6.3-8.2) g/dL Albumin 4.5 (3.5-5.0) g/dL Globulin 3.0 (1.7-4.1) g/dL Albumin/Globulin Ratio 1.5 (1.0-2.8) Lipase 76 (23-300) U/L Urine Color Yellow Urine Appearance Clear Urine pH 5.0 (4.5-8.0) Ur Specific [place] 1.020 (1.000-1.035) Urine Protein Negative (Negative) Urine Glucose (UA) Negative (Negative) g/dL Urine Ketones Negative (NEGATIVE) Urine Occult Blood Negative (Negative) Urine Nitrate Negative (Negative) Urine Bilirubin Negative (NEGATIVE) Urine Urobilinogen 0.2 (0.2) E.U./dL Ur Leukocyte Esterase Trace H (NEGATIVE) Urine RBC None seen (0-5/HPF) Urine WBC Not Reportable Urine Bacteria None seen (None) Ur Culture Indicated? Cult not indicated Micro UA Comment Microscopic normal 03/28/20 Range/Units 13:20 WBC (4.5-11.0) X10^3/uL RBC (4.5-5.9) X10^6/uL Hgb (13.5-17.5) g/dL Hct (41-53) % MCV (80-100) fL MCH (26-34) PG MCHC (30-36) % RDW (11.6-14.8) % Plt Count (150-400) X10^3/uL Neut % (Auto) (50-75) % Lymph % (Auto) (25-40) % [place] % (Auto) (3-14) % Eos % (Auto) (2-4) % Baso % (Auto) (0-2) % Neut # (Auto) (5381-2521) /uL Lymph # (Auto) (4944-7280) /uL [place] # (Auto) (0-900) /uL Eos # (Auto) (0-450) /uL Baso # (Auto) (0-100) /uL ESR (0-15) MM/HR PT (10.1-12.7) SECONDS INR (0.9-1.3) APTT (26.4-36.2) SECONDS Sodium (137-145) mmol/L Potassium (3.4-5.1) mmol/L Chloride (98-107) mmol/L Carbon Dioxide (22-32) mmol/L BUN (9-20) mg/dL Creatinine (0.66-1.25) mg/dL Estimated GFR (>60) mL/min BUN/Creatinine Ratio (6-22) Glucose (70-100) mg/dL Calcium (8.4-10.2) mg/dL Total Bilirubin (0.2-1.3) mg/dL AST (17-59) IU/L ALT (<50) IU/L Alkaline Phosphatase (38-126) U/L Total Creatine Kinase (55-170) U/L CK-MB (CK-2) (<2.37) ng/mL CK-MB (CK-2) Rel Index (1.5-5.0) % Troponin I < 0.012 (0.01-0.034) ng/mL C-Reactive Protein (<1.0) mg/dL Total Protein (6.3-8.2) g/dL Albumin (3.5-5.0) g/dL Globulin (1.7-4.1) g/dL Albumin/Globulin Ratio (1.0-2.8) Lipase (23-300) U/L Urine Color Urine Appearance Urine pH (4.5-8.0) Ur Specific [place] (1.000-1.035) Urine Protein (Negative) Urine Glucose (UA) (Negative) g/dL Urine Ketones (NEGATIVE) Urine Occult Blood (Negative) Urine Nitrate (Negative) Urine Bilirubin (NEGATIVE) Urine Urobilinogen (0.2) E.U./dL Ur Leukocyte Esterase (NEGATIVE) Urine RBC (0-5/HPF) Urine WBC Urine Bacteria (None) Ur Culture Indicated? Micro UA Comment Imaging Data Chest x-ray: Attestation: I personally reviewed and interpreted this imaging study as follows: Radiologist's Impression: [address] [address] XRay Report Signed Patient: Violetta Armendariz#: [id number] : 1970Acct:[id number] Age/Sex: 49 / MDate of Service: 03/28/20 Loc: ED Accession Number: [id number] Procedure: XR chest 1V Ordering Provider: Tai Ndiaye MD PROCEDURE: XR CHEST 1V INDICATIONS: chest pain TECHNIQUE: One view of the chest was acquired. COMPARISON: [facility], [place], XR CHEST 1V, 03/24/2020, 18:11. FINDINGS: Surgical changes and devices: None. Lungs and pleura: Lungs are clear. No pleural effusions or pneumothorax. Mediastinum: Mediastinal contours appear normal. Heart size is normal. Bones and chest wall: No suspicious bony lesions. Overlying soft tissues appear unremarkable. IMPRESSION: No acute cardiopulmonary pathology. Dictated by: Saurav Hogue M.D. on 03/28/2020 at 12:21 Approved by: Saurav Hogue M.D. on 03/28/2020 at 12:21 ECG Data Attestation: I personally reviewed and interpreted this ECG as follows: Prior ECG tracings: available for review (Similar to prior tracing) Interpretation: Normal sinus rhythm heart rate of 89 ID interval 144 QRS 84 milliseconds QT 350 P axis 67 R axis 17 T axis 7 MDM Narrative Medical decision making narrative: This is a 49-year-old gentleman, with a history of chronic gallbladder pain, GERD who presents to the emergency department complaining of burning chest pain that began at 9:00 a.m. this morning. Differential diagnoses that were considered included cardiac chest pain, costochondritis, muscle strain, biliary colic, GERD, gastric ulcer. Cardiac workup was negative. His pain was significantly relieved with administration of a GI cocktail. He was prescribed omeprazole and counseled regarding consistency in taking the medication as well as time of day. He was also advised regarding diet for reflux and GERD symptoms. I suspect that today's chest pain is related to increased acid production from his GERD as it was almost entirely relieved with a GI cocktail, I also suspect that his throat discomfort that he has been experiencing is directly related to his GERD and excess acid production. I advised him of this and encouraged him to consistently take his omeprazole, and follow-up with his primary care physician regarding ongoing treatment for his GERD and for the evaluation as needed by gastroenterology, whom he saw 6 days ago. He was advised to follow-up with his PCP regarding further testing for possible amoeba. He is provided with emergency return precautions, all questions are answered. <Tai Ndiaye MD - Last Filed: 04/01/20 21:30> Lab Data Labs: Lab Results 03/28/20 03/28/20 03/28/20 Range/Units 11:20 11:20 11:20 WBC 8.6 (4.5-11.0) X10^3/uL RBC 5.14 (4.5-5.9) X10^6/uL Hgb 15.3 (13.5-17.5) g/dL Hct 45.3 (41-53) % MCV 88.1 (80-100) fL MCH 29.8 (26-34) PG MCHC 33.9 (30-36) % RDW 13.0 (11.6-14.8) % Plt Count 245 (150-400) X10^3/uL Neut % (Auto) 77.3 H (50-75) % Lymph % (Auto) 15.3 L (25-40) % [place] % (Auto) 6.9 (3-14) % Eos % (Auto) 0.2 L (2-4) % Baso % (Auto) 0.3 (0-2) % Neut # (Auto) 6700 (5357-9146) /uL Lymph # (Auto) 1300 (9075-3719) /uL [place] # (Auto) 600 (0-900) /uL Eos # (Auto) 0 (0-450) /uL Baso # (Auto) 0 (0-100) /uL ESR 3 (0-15) MM/HR PT (10.1-12.7) SECONDS INR (0.9-1.3) APTT (26.4-36.2) SECONDS Sodium (137-145) mmol/L Potassium (3.4-5.1) mmol/L Chloride (98-107) mmol/L Carbon Dioxide (22-32) mmol/L BUN (9-20) mg/dL Creatinine (0.66-1.25) mg/dL Estimated GFR (>60) mL/min BUN/Creatinine Ratio (6-22) Glucose (70-100) mg/dL Calcium (8.4-10.2) mg/dL Total Bilirubin (0.2-1.3) mg/dL AST (17-59) IU/L ALT (<50) IU/L Alkaline Phosphatase (38-126) U/L Total Creatine Kinase (55-170) U/L CK-MB (CK-2) (<2.37) ng/mL CK-MB (CK-2) Rel Index (1.5-5.0) % Troponin I (0.01-0.034) ng/mL C-Reactive Protein < 0.5 (<1.0) mg/dL Total Protein (6.3-8.2) g/dL Albumin (3.5-5.0) g/dL Globulin (1.7-4.1) g/dL Albumin/Globulin Ratio (1.0-2.8) Lipase (23-300) U/L Urine Color Urine Appearance Urine pH (4.5-8.0) Ur Specific [place] (1.000-1.035) Urine Protein (Negative) Urine Glucose (UA) (Negative) g/dL Urine Ketones (NEGATIVE) Urine Occult Blood (Negative) Urine Nitrate (Negative) Urine Bilirubin (NEGATIVE) Urine Urobilinogen (0.2) E.U./dL Ur Leukocyte Esterase (NEGATIVE) Urine RBC (0-5/HPF) Urine WBC Urine Bacteria (None) Ur Culture Indicated? Micro UA Comment 03/28/20 03/28/20 03/28/20 Range/Units 11:20 11:20 12:13 WBC (4.5-11.0) X10^3/uL RBC (4.5-5.9) X10^6/uL Hgb (13.5-17.5) g/dL Hct (41-53) % MCV (80-100) fL MCH (26-34) PG MCHC (30-36) % RDW (11.6-14.8) % Plt Count (150-400) X10^3/uL Neut % (Auto) (50-75) % Lymph % (Auto) (25-40) % [place] % (Auto) (3-14) % Eos % (Auto) (2-4) % Baso % (Auto) (0-2) % Neut # (Auto) (3536-1795) /uL Lymph # (Auto) (8976-4749) /uL [place] # (Auto) (0-900) /uL Eos # (Auto) (0-450) /uL Baso # (Auto) (0-100) /uL ESR (0-15) MM/HR PT 11.7 (10.1-12.7) SECONDS INR 1.0 (0.9-1.3) APTT 31 D (26.4-36.2) SECONDS Sodium 137 (137-145) mmol/L Potassium 4.1 (3.4-5.1) mmol/L Chloride 107 (98-107) mmol/L Carbon Dioxide 22 (22-32) mmol/L BUN 22 H (9-20) mg/dL Creatinine 0.89 (0.66-1.25) mg/dL Estimated GFR > 60.0 (>60) mL/min BUN/Creatinine Ratio 24.7 H (6-22) Glucose 133 H (70-100) mg/dL Calcium 9.6 (8.4-10.2) mg/dL Total Bilirubin 0.5 (0.2-1.3) mg/dL AST 26 (17-59) IU/L ALT 32 (<50) IU/L Alkaline Phosphatase 78 (38-126) U/L Total Creatine Kinase 152 (55-170) U/L CK-MB (CK-2) 2.09 (<2.37) ng/mL CK-MB (CK-2) Rel Index 1.4 L (1.5-5.0) % Troponin I < 0.012 (0.01-0.034) ng/mL C-Reactive Protein (<1.0) mg/dL Total Protein 7.5 (6.3-8.2) g/dL Albumin 4.5 (3.5-5.0) g/dL Globulin 3.0 (1.7-4.1) g/dL Albumin/Globulin Ratio 1.5 (1.0-2.8) Lipase 76 (23-300) U/L Urine Color Yellow Urine Appearance Clear Urine pH 5.0 (4.5-8.0) Ur Specific [place] 1.020 (1.000-1.035) Urine Protein Negative (Negative) Urine Glucose (UA) Negative (Negative) g/dL Urine Ketones Negative (NEGATIVE) Urine Occult Blood Negative (Negative) Urine Nitrate Negative (Negative) Urine Bilirubin Negative (NEGATIVE) Urine Urobilinogen 0.2 (0.2) E.U./dL Ur Leukocyte Esterase Trace H (NEGATIVE) Urine RBC None seen (0-5/HPF) Urine WBC Not Reportable Urine Bacteria None seen (None) Ur Culture Indicated? Cult not indicated Micro UA Comment Microscopic normal 03/28/20 Range/Units 13:20 WBC (4.5-11.0) X10^3/uL RBC (4.5-5.9) X10^6/uL Hgb (13.5-17.5) g/dL Hct (41-53) % MCV (80-100) fL MCH (26-34) PG MCHC (30-36) % RDW (11.6-14.8) % Plt Count (150-400) X10^3/uL Neut % (Auto) (50-75) % Lymph % (Auto) (25-40) % [place] % (Auto) (3-14) % Eos % (Auto) (2-4) % Baso % (Auto) (0-2) % Neut # (Auto) (9391-4384) /uL Lymph # (Auto) (7900-3128) /uL [place] # (Auto) (0-900) /uL Eos # (Auto) (0-450) /uL Baso # (Auto) (0-100) /uL ESR (0-15) MM/HR PT (10.1-12.7) SECONDS INR (0.9-1.3) APTT (26.4-36.2) SECONDS Sodium (137-145) mmol/L Potassium (3.4-5.1) mmol/L Chloride (98-107) mmol/L Carbon Dioxide (22-32) mmol/L BUN (9-20) mg/dL Creatinine (0.66-1.25) mg/dL Estimated GFR (>60) mL/min BUN/Creatinine Ratio (6-22) Glucose (70-100) mg/dL Calcium (8.4-10.2) mg/dL Total Bilirubin (0.2-1.3) mg/dL AST (17-59) IU/L ALT (<50) IU/L Alkaline Phosphatase (38-126) U/L Total Creatine Kinase (55-170) U/L CK-MB (CK-2) (<2.37) ng/mL CK-MB (CK-2) Rel Index (1.5-5.0) % Troponin I < 0.012 (0.01-0.034) ng/mL C-Reactive Protein (<1.0) mg/dL Total Protein (6.3-8.2) g/dL Albumin (3.5-5.0) g/dL Globulin (1.7-4.1) g/dL Albumin/Globulin Ratio (1.0-2.8) Lipase (23-300) U/L Urine Color Urine Appearance Urine pH (4.5-8.0) Ur Specific [place] (1.000-1.035) Urine Protein (Negative) Urine Glucose (UA) (Negative) g/dL Urine Ketones (NEGATIVE) Urine Occult Blood (Negative) Urine Nitrate (Negative) Urine Bilirubin (NEGATIVE) Urine Urobilinogen (0.2) E.U./dL Ur Leukocyte Esterase (NEGATIVE) Urine RBC (0-5/HPF) Urine WBC Urine Bacteria (None) Ur Culture Indicated? Micro UA Comment Discharge Plan Departure Patient Disposition: Home Clinical Impression: Chest pain due to GERD Discharge Date/Time: 03/28/20 14:57 Instructions: Heartburn -- Overview, DI for Gastroesophageal Reflux Disease (GERD), GERD Diet Activity Restrictions/Additional Instructions: Thank you for letting us be part of your care in the emergency department today. There is no evidence of an emergent or life threatening illness at this time, but follow up with your primary care doctor doctor in 1-2 days is recommended nonetheless to continue to rule out serious underlying causes of your symptoms. I also recommend that you call your director of market research office and make sure you have a good plan for a follow-up appointment with them if they think that it is advisable, and that you get the results from your imaging study you had done of your gallbladder last week. Please call the office for an appointment. Please return to the Emergency Department for any worsening or persistent symptoms. Please take medications as directed. All of your labs today looked good, and does not appear that the cause of your pain is related to your heart. You did feel a lot better after we gave you a cocktail of medicines to help with heartburn or over acid production. I am prescribing omeprazole for you which is a medication that you need to take consistently to get good results, however you can also talk to your primary care provider about options for you to help contr ol the symptoms of your gastroesophageal reflux disease. I have also included information regarding a diet that is appropriate for people that have heartburn, as we discussed is very important to follow this in order to have relief of your symptoms. It is very important that you take this medicine I prescribed every day, at the same time of day it is recommended to take it 20 or 30 minutes befor e breakfast. He stated that you have recently changed her primary care provider, and I do recommend that you see them this week if possible to follow- up on today's visit in the emergency department. I am also including information for the [facility] [place] which can help set you up w ith a primary care provider if you need one still. Prescriptions: New omeprazole 20 mg capsule,delayed release(DR/EC) 20 mg PO DAILY MDD 40 Qty: 30 RF: 0 Referrals: [facility] [Outside] Stand Alone Forms: Work Release Note
[2020-03-28 12:24] LABS: Bacteria Urine None Seen; RBC Urine None Seen (0-5/HPF)
[2020-03-28 12:26] LABS: Appearance Urine UA CLEAR; Bilirubin Urine UA NEGATIVE (NEGATIVE); Color Urine UA YELLOW; Glucose Urine UA NEGATIVE (Negative); Ketones Urine UA NEGATIVE (NEGATIVE); Leukocyte Esterase Urine UA TRACE (NEGATIVE); Nitrite Urine UA NEGATIVE (Negative); Occult Blood Urine UA NEGATIVE (Negative); Protein Urine UA NEGATIVE (Negative); Urobilinogen Urine UA 0.2 E.U./dL (0.2)
[2020-03-28 12:37] LABS: Culture Indicated Urine Cult Not Indicated; Urine Comments Microscopic Normal
[2020-03-28 13:08] VITALS: BP 123/72; PULSE 67; RESP 12; O2SAT 98
[2020-03-28] MEDS: MAG HYDROX/ALUMINUM/SIMETH SUS 20 ML, LIDOCAINE VISCOUS 2% 15 ML PO (13:20)
[2020-03-28 13:52] LABS: Troponin I < 0.012 ng/mL (0.01-0.034)
[2020-03-28 14:00] VITALS: BP 115/67; PULSE 60; RESP 18; O2SAT 97
== END 2020-03-28 14:57 | disposition home or self-care (01) ==
PROVIDERS: Emergency Medicine; Emergency Provider Student in an Organized Health Care Education/Training Program
DX: K21.9 Gastro-esophageal reflux disease without esophagitis (principal); R07.9 Chest pain, unspecified
CPT/HCPCS: 36415; 71045; 80053; 81001; 82550; 82553; 83690; 84484; 85025; 85610; 85651; 85730; 86140; 93005; 99284

== ENCOUNTER 2022-10-20 14:10 | Emergency (ER) | payer OTHER, MEDICAID, SELFPAY ==
[2022-10-20 14:23] VITALS: BP 135/77; PULSE 69; RESP 18; TEMP 36.7; O2SAT 98; BMI 28.1
--- NOTE | 2022-10-20 14:37 | PC.NURSE ---
Pt has hx of appendix and gall bladder removal
[2022-10-20 14:47] LABS: Add Manual Diff / Slide Review NO; Basophils Absolute Auto 0 /uL (0-100); Basophils Percent Auto 0.3 % (0-2); Eosinophils Absolute Auto 100 /uL (0-450); Eosinophils Percent Auto 1.6 % (2-4); Hematocrit 46.6 % (41-53); Hemoglobin 15.7 g/dL (13.5-17.5); Lymphocytes Absolute Auto 2300 /uL (1100-4500); Lymphocytes Percent Auto 26.9 % (25-40); Mean Corpuscular HGB Conc 33.7 % (30-36); Mean Corpuscular Hemoglobin 29.3 PG (26-34); Mean Corpuscular Volume 86.9 fL (80-100); Monocytes Absolute Auto 900 /uL (0-900); Monocytes Percent Auto 10.2 % (3-14); Neutrophils Absolute Auto 5200 /uL (1500-7000); Platelet Count 244 X10^3/uL (150-400); Red Blood Cell Count 5.36 X10^6/uL (4.5-5.9); Red Cell Distribution Width 13.1 % (11.6-14.8); White Blood Cell Count 8.5 X10^3/uL (4.5-11.0)
[2022-10-20 14:58] LABS: Alanine Aminotransferase 48 IU/L (<50); Albumin 4.3 g/dL (3.5-5.0); Albumin Globulin Ratio 1.3 (1.0-2.8); Alkaline Phosphatase 80 U/L (38-126); Aspartate Aminotransferase 26 IU/L (17-59); BUN Creatinine Ratio 18.8 (6-22); Bilirubin Total 0.5 mg/dL (0.2-1.3); Blood Urea Nitrogen 18 mg/dL (9-20); Calcium 9.3 mg/dL (8.4-10.2); Carbon Dioxide 25 mmol/L (22-32); Chloride 107 mmol/L (98-107); Estimated Glomerular Filt Rate > 60 mL/min (>60); Globulin 3.3 g/dL (1.7-4.1); Glucose 88 mg/dL (70-100); HEMOLYSIS < 15 (0-50); Lipase 58 U/L (23-300); Potassium 4.2 mmol/L (3.4-5.1); Sodium 139 mmol/L (137-145); Total Protein 7.6 g/dL (6.3-8.2)
--- NOTE | 2022-10-20 17:12 | ED.ABDPAIN ---
HPI - Abdominal Pain General Chief Complaint: Abdominal Pain Stated Complaint: ABD pain ongoing 2 or 3 months Time Seen by Provider: 10/20/22 14:22 Source: patient Mode of arrival: Ambulatory History of Present Illness HPI narrative: Patient is a healthy 52-year-old male who presents with ongoing diarrhea for about 7-10 days. He says he goes multiple times a day it is watery and loose. He says that he is only traveled to [place] but is quite vigilant about drinking bottled water only. He occasionally has some nausea no vomiting. He says some abdominal pain and cramping. He is not had any bloody stools. He denies any well water no fever or chills. He is not dizzy lightheaded or having any syncopal episodes Related Data Previous Rx's Medication Instructions Recorded omeprazole 20 mg capsule,delayed 20 mg PO DAILY #30 caps 03/28/20 release ciprofloxacin HCl 500 mg tablet 500 mg PO BID #14 tabs 10/20/22 (Cipro) Allergies Allergy/AdvReac Type Severity Reaction Status Date / Time ibuprofen Allergy Verified 10/20/22 14:27 tramadol Allergy Verified 10/20/22 14:27 Patient History Medical History (Updated 10/20/22 @ 19:42 by Kathrin Yoo DO) Pericarditis Social History Smoking Status: Former smoker Smoking Status: Former smoker alcohol intake frequency: 0-2 drinks per day Substance Use Type: marijuana Exam Initial Vital Signs Initial Vital Signs: Vital Signs Temperature 98.1 F 10/20/22 14:23 Pulse Rate 69 10/20/22 14:23 Respiratory Rate 18 10/20/22 14:23 Blood Pressure 135/77 10/20/22 14:23 Pulse Oximetry 98 10/20/22 14:23 Oxygen Delivery Method 10/20/22 14:23 GENERAL: Alert pleasant 52-year-old male and in no acute distress. HEENT: Head atraumatic,EOMI, pupils reactive, face symmetric, moist mucous membranes CARDIOVASCULAR: Regular rate and rhythm without murmurs, rubs or gallops. RESPIRATORY: Breath sounds equal bilaterally, no wheezes rales or rhonchi. ABDOMEN: Soft, nontender. Normoactive bowel sounds all 4 quadrants. No guarding or rebound. EXTREMITIES: Normal range of motion, no clubbing or edema. Neurovascularly intact NEUROLOGICAL: Alert and oriented x4.Normal gait and speech. SKIN: Warm, dry, no laceration, no petechiae, no rashes or lesions. Course Orders Ordered: ED Orders 10/20/22 14:30 Complete Blood Count AUTO DIFF Stat Comprehensive Metabolic Panel Stat Lipase Stat 10/20/22 17:23 GI Panel (Film Array) Stat Ondansetron HCl (Ondansetron 4 Mg/2 Ml Inj) 4 mg IV NOW PRN PRN Reason: Nausea And Vomiting Discontinued Medications Acetaminophen (Acetaminophen 325 Mg Tablet) 650 mg PO NOW ONE Stop: 10/20/22 17:22 Last Admin: 10/20/22 17:52 Dose: 650 mg Documented By: ORA Ciprofloxacin (Ciprofloxacin 250 Mg Tablet) 500 mg PO NOW ONE Stop: 10/20/22 19:43 Last Admin: 10/20/22 19:52 Dose: 500 mg Sodium Chloride (Normal Saline 0.9%) 1,000 mls @ 1,000 mls/hr IV BOLUS ONE Stop: 10/20/22 18:20 Last Infusion: 10/20/22 19:29 Dose: 0 mls/hr Documented By: Admin: 10/20/22 17:53 Dose: 1,000 mls/hr Documented By: ORA Ondansetron HCl (Ondansetron 4 Mg/2 Ml Inj) 4 mg IV NOW ONE Stop: 10/20/22 17:22 Last Admin: 10/20/22 17:51 Dose: 4 mg Documented By: ORA Vital Signs Vital signs: Vital Signs - 8 hr 10/20/22 14:23 10/20/22 17:50 10/20/22 18:29 Temperature 98.1 F 98.3 F Pulse Rate 69 61 69 Respiratory Rate 18 16 Blood Pressure 135/77 139/75 135/77 Pulse Oximetry 98 99 98 Oxygen Delivery Method Room Air Room Air Room Air MDM - Abdominal Pain Lab Data Result diagrams: 10/20/22 14:30 10/20/22 14:30 Labs: Lab Results 10/20/22 10/20/22 10/20/22 Range/Units 14:30 14:30 17:23 WBC 8.5 (4.5-11.0) X10^3/uL RBC 5.36 (4.5-5.9) X10^6/uL Hgb 15.7 (13.5-17.5) g/dL Hct 46.6 (41-53) % MCV 86.9 (80-100) fL MCH 29.3 (26-34) PG MCHC 33.7 (30-36) % RDW 13.1 (11.6-14.8) % Plt Count 244 (150-400) X10^3/uL Neut % (Auto) 61.0 (50-75) % Lymph % (Auto) 26.9 (25-40) % [place] % (Auto) 10.2 (3-14) % Eos % (Auto) 1.6 L (2-4) % Baso % (Auto) 0.3 (0-2) % Neut # (Auto) 5200 (0883-3960) /uL Lymph # (Auto) 2300 (7078-3501) /uL [place] # (Auto) 900 (0-900) /uL Eos # (Auto) 100 (0-450) /uL Baso # (Auto) 0 (0-100) /uL Sodium 139 (137-145) mmol/L Potassium 4.2 (3.4-5.1) mmol/L Chloride 107 (98-107) mmol/L Carbon Dioxide 25 (22-32) mmol/L BUN 18 (9-20) mg/dL Creatinine 0.96 (0.66-1.25) mg/dL Estimated GFR > 60 (>60) mL/min BUN/Creatinine Ratio 18.8 (6-22) Glucose 88 (70-100) mg/dL Calcium 9.3 (8.4-10.2) mg/dL Total Bilirubin 0.5 (0.2-1.3) mg/dL AST 26 (17-59) IU/L ALT 48 (<50) IU/L Alkaline Phosphatase 80 (38-126) U/L Total Protein 7.6 (6.3-8.2) g/dL Albumin 4.3 (3.5-5.0) g/dL Globulin 3.3 (1.7-4.1) g/dL Albumin/Globulin Ratio 1.3 (1.0-2.8) Lipase 58 (23-300) U/L Stl C. cayetanensis PCR Not detected (Not Detect) Stool Rotavirus (PCR) Not detected (Not Detect) Stool Adenovirus (PCR) Not detected (Not Detect) Stool Astrovirus (PCR) Not detected (Not Detect) Stool Cryptosporidium PCR Not detected (Not Detect) Stl E.coli Shiga Tox PCR Not detected (Not Detect) St Sh/Enteroin Ecoli PCR Not detected (Not Detect) Stool E coli O157 PCR Not Reportable Stl Enterotoxigenic E PCR Not detected (Not Detect) Stool EPEC (PCR) Not detected (Not Detect) Stl E. histolytica PCR Not detected (Not Detect) Stool Giardia Lamblia PCR Not detected (Not Detect) Stool Sapovirus (PCR) Not detected (Not Detect) Stl P. shigelloides PCR Not detected (Not Detect) St Y.enterocolitica PCR Not detected (Not Detect) Stool Vibrio (PCR) Not detected (Not Detect) Stl Vibrio cholerae PCR Not detected (Not Detect) Stl Enteroaggr Ecoli PCR Not detected (Not Detect) Stl Norovirus GI/GII PCR Not detected (Not Detect) Campylobacter (PCR) Not detected (Not Detect) C. difficile Tox (PCR) Not detected (Not Detect) Salmonella (PCR) Not detected (Not Detect) Point of care testing: Urine Dip Bedside Urine Glucose Negative Bedside Urine Bilirubin - Negative Bedside Urine Ketone - Negative Urine Specific [place] 1.030 Bedside Urine Occult Blood - Negative Bedside Urine pH 6.0 Bedside Urine Protein - Negative Bedside Urine Urobilinogen - Negative Bedside Urine Nitrite - Negative Bedside Urine Leukocytes - Negative Esterase MDM Narrative Medical decision making narrative: Healthy 52-year-old male who presents with multiple days of watery loose diarrhea was only able to have a small amount in the emergency department. He is tolerating fluids. He has no evidence of bacteria or viral infection. He has no leukocytosis or signs of dehydration BUN and creatinine are within normal limits. GI panel is negative. However it was an extremely small sample and he is on ongoing diarrhea for the last 7-10 days. I think reasonable to put him on short course of antibiotics for traveler's diarrhea to see if it improves. Discharge Plan Departure Patient Disposition: Home Clinical Impression: Gastroenteritis Instructions: DI for Viral Gastroenteritis -- Adult Activity Restrictions/Additional Instructions: *You have been diagnosed with gastroenteritis *What to do: Increase fluid intake as tolerated *Continue to take medications as directed Cipro 500 mg twice a day for 7 days Imodium as directed *Follow up with your primary care provider in 2-3 days or call [phone] *Return to ER if you should have increasing diarrhea abdominal pain nausea vomiting dizziness lightheadedness or any new, worsening or concerning symptoms Prescriptions: New ciprofloxacin HCl [Cipro] 500 mg tablet 500 mg PO BID Qty: 14 0RF No Action omeprazole 20 mg capsule,delayed release(DR/EC) 20 mg PO DAILY MDD 40 Qty: 30 0RF Referrals: Miscellaneous,Doctor, MD [Primary Care Provider] - Stand Alone Forms: Patient Portal/API
[2022-10-20 17:50] VITALS: BP 139/75; PULSE 61; TEMP 36.8; O2SAT 99
[2022-10-20] MEDS: ONDANSETRON 4 MG/2 ML INJ IV (17:51)
[2022-10-20] MEDS: ACETAMINOPHEN 325 MG TABLET 650 MG PO (17:52)
[2022-10-20] MEDS: SODIUM CHLORIDE 0.9% 1,000 ML 1000 ML IV (17:53)
[2022-10-20 18:29] VITALS: BP 135/77; PULSE 69; RESP 16; O2SAT 98
[2022-10-20 19:14] LABS: Adenovirus F 40/41 Not Detected (Not Detect); Astrovirus Not Detected (Not Detect); Campylobacter Not Detected (Not Detect); Clostridium difficile toxin AB Not Detected (Not Detect); Cryptosporidium Not Detected (Not Detect); Cyclospora cayetanensis Not Detected (Not Detect); Entamoeba histolytica Not Detected (Not Detect); Enteroaggregative E.coli Not Detected (Not Detect); Enteropathogenic E.coli Not Detected (Not Detect); Enterotoxigenic E.coli It/st Not Detected (Not Detect); Giardia lamblia Not Detected (Not Detect); Norovirus GI/GII Not Detected (Not Detect); Plesiomonsa shigelloides Not Detected (Not Detect); Rotavirus A Not Detected (Not Detect); Salmonella Not Detected (Not Detect); Sapovirus Not Detected (Not Detect); Shiga-like toxin-prod E.coli Not Detected (Not Detect); Shigella/Enteroinvasive E.coli Not Detected (Not Detect); Vibrio Not Detected (Not Detect); Vibrio cholerae Not Detected (Not Detect); Yersinia enterocolitica Not Detected (Not Detect)
[2022-10-20] MEDS: CIPROFLOXACIN 250 MG TABLET 500 MG PO (19:52)
[2022-10-20 20:01] VITALS: BP 142/88; PULSE 65; O2SAT 98
== END 2022-10-20 20:10 | disposition home or self-care (01) ==
PROVIDERS: Emergency Provider Emergency Medicine
DX: K52.9 Noninfective gastroenteritis and colitis, unspecified (principal)
CPT/HCPCS: 36415; 80053; 81003; 83690; 85025; 87507; 96374; 99284; J2405

== ENCOUNTER 2022-10-22 15:46 | Emergency (ER) | payer OTHER, MEDICAID, SELFPAY ==
[2022-10-22 15:49] VITALS: BP 148/82; PULSE 78; RESP 18; TEMP 37.1; O2SAT 95; BMI 27.8
--- NOTE | 2022-10-22 18:37 | ED.NAVMDI ---
HPI - Nausea/Vomiting/Diarrhea General Chief complaint: Nausea/Vomiting/Diarrhea Stated complaint: Side effects from medication Time Seen by Provider: 10/22/22 18:31 Source: patient Mode of arrival: Ambulatory Related Data Previous Rx's Medication Instructions Recorded omeprazole 20 mg capsule,delayed 20 mg PO DAILY #30 caps 03/28/20 release ciprofloxacin HCl 500 mg tablet 500 mg PO BID #14 tabs 10/20/22 (Cipro) Allergies Allergy/AdvReac Type Severity Reaction Status Date / Time ibuprofen Allergy Verified 10/22/22 15:49 tramadol Allergy Verified 10/22/22 15:49 Patient History Medical History Pericarditis Social History Smoking Status: Former smoker Smoking Status: Former smoker alcohol intake frequency: 0-2 drinks per day Substance Use Type: marijuana Exam Initial Vital Signs Initial Vital Signs: Vital Signs Temperature 98.8 F 10/22/22 15:49 Pulse Rate 78 10/22/22 15:49 Respiratory Rate 18 10/22/22 15:49 Blood Pressure 148/82 H 10/22/22 15:49 Pulse Oximetry 95 10/22/22 15:49 Oxygen Delivery Method 10/22/22 15:49 Course Vital Signs Vital signs: Vital Signs - 8 hr 10/22/22 15:49 Temperature 98.8 F Pulse Rate 78 Respiratory Rate 18 Blood Pressure 148/82 H Pulse Oximetry 95 Oxygen Delivery Method Room Air Discharge Plan Departure Patient Disposition: Home Clinical Impression: Gastroenteritis Instructions: DI for Viral Gastroenteritis -- Adult Activity Restrictions/Additional Instructions: You were evaluated in the ED today for diarrhea, nausea. It appears that the antibiotic ciprofloxacin that you were taking has exacerbated you diarrhea. Your stool studies did not detect a bacterial infection, and it is safe for you to stop the antibiotic. Please follow the BRAT diet which consists of bread, rice, apples, toast to slow down your diarrhea. Please avoid foods that are acidic or high in fiber such as coffee, alcohol, fruit, vegetables, juice. You may also take Imodium which is available [id number] to slow down your diarrhea. You were losing a lot of water from the diarrhea, so please be sure to drink lots of water. Please return to the ED if your diarrhea does not improve, you are dehydrated, unable to keep food or water down. Prescriptions: No Action omeprazole 20 mg capsule,delayed release(DR/EC) 20 mg PO DAILY MDD 40 Qty: 30 0RF ciprofloxacin HCl [Cipro] 500 mg tablet 500 mg PO BID Qty: 14 0RF Referrals: Miscellaneous,Doctor, MD [Primary Care Provider] - Stand Alone Forms: Patient Portal/API
--- NOTE | 2022-10-22 18:46 | ED.NAVMDI ---
HPI - Nausea/Vomiting/Diarrhea <Stephanie Padron PA-C - Last Filed: 10/22/22 19:44> General Chief complaint: Nausea/Vomiting/Diarrhea Stated complaint: Side effects from medication Time Seen by Provider: 10/22/22 18:31 Source: patient Mode of arrival: Ambulatory History of Present Illness HPI Narrative: 52-year-old male with no reported past medical history presents to the ED with 2.5 weeks of diarrhea. Patient states that he was seen in the ED 3 days ago for 2 weeks of diarrhea. Patient was prescribed ciprofloxacin, following which patient states that his diarrhea has worsened. Patient states he is had anywhere between 7-12 episodes of watery diarrhea over the last 2 days. Denies melena, hematochezia. Patient also endorses intermittent nausea. Patient denies fever, chills, chest pain, shortness of breath, vomiting, dysuria, lightheadedness, dizziness, syncope. Patient is tolerating p.o. well. Related Data Previous Rx's Medication Instructions Recorded omeprazole 20 mg capsule,delayed 20 mg PO DAILY #30 caps 03/28/20 release ciprofloxacin HCl 500 mg tablet 500 mg PO BID #14 tabs 10/20/22 (Cipro) Allergies Allergy/AdvReac Type Severity Reaction Status Date / Time ibuprofen Allergy Verified 10/22/22 15:49 tramadol Allergy Verified 10/22/22 15:49 Review of Systems <Stephanie Padron PA-C - Last Filed: 10/22/22 19:44> Review of Systems ROS Unobtainable: All systems reviewed & are unremarkable except as noted in HPI and below Constitutional Constitutional: Denies chills, Denies fatigue, Denies fever(s), Denies frequent falls, Denies lethargy and Denies weakness Eyes Eyes: Denies change in vision, Denies eye discharge, Denies irritation and Denies loss of vision ENT Ears, Nose, Mouth, and Throat: Denies change in voice, Denies dizziness, Denies neck pain, Denies sore throat and Denies throat swelling Cardiovascular Cardiovascular: Denies chest pain, Denies irregular heart rhythm, Denies lightheadedness, Denies palpitations, Denies dyspnea, Denies dyspnea on exertion and Denies orthopnea Respiratory Respiratory: Denies cough, Denies dyspnea, Denies dyspnea on exertion and Denies wheezing Gastrointestinal Gastrointestinal: Denies abdominal pain, Denies change in bowel habits, Reports diarrhea, Reports nausea and Denies vomiting Genitourinary Genitourinary: Denies hematuria, Denies flank pain, Denies urinary incontinence and Denies urinary urgency Musculoskeletal Musculoskeletal: Denies back pain, Denies muscle weakness, Denies neck pain, Denies numbness and Denies tingling Integumentary/Breasts Skin/Breast: Denies pruritus, Denies erythema, Denies rash and Denies wounds Neurologic Neurologic: Denies behavioral changes, Denies confusion, Denies dizziness, Denies frequent falls, Denies loss of vision, Denies numbness, Denies tingling and Denies weakness Psychiatric Psychiatric: Denies anxiety, Denies behavioral changes, Denies confusion, Denies depression, Denies homicidal ideation and Denies suicidal ideation Endocrine Endocrine: Denies fatigue, Denies flushing and Denies palpitations Hematologic/Lymphatic Hematologic/Lymphatic: Denies easy bruising Allergic/Immunologic Allergic/Immunologic: Denies urticaria, Denies throat swelling and Denies wheezing Patient History <Stephanie Padron PA-C - Last Filed: 10/22/22 19:44> Medical History Pericarditis Social History Smoking Status: Former smoker Smoking Status: Former smoker alcohol intake frequency: 0-2 drinks per day Substance Use Type: marijuana Exam <Stephanie Padron PA-C - Last Filed: 10/22/22 19:44> Narrative Exam Narrative: Const General:?cooperative, healthy appearing and comfortable [facility] Head:?normal to inspection Ears:?hearing grossly normal bilaterally Nose:?external nose normal Face and sinus:?normal facial exam and sinuses nontender Mouth:?oral mucosae normal; moist mucous membranes. Throat:?posterior oropharynx normal Eyes General:?appearance normal, both eyes and all related structures Neck Neck:?normal visual inspection and no lymphadenopathy noted Resp Effort & Inspection:?normal respiratory effort Auscultation:?clear to auscultation bilaterally Cardio Rate:?regular rate Rhythm:?regular rhythm GI Abdomen is soft, nondistended, mildly tender to palpation diffusely. No CVA tenderness. Neuro General:?patient alert, patient awake and patient oriented x3 Initial Vital Signs Initial Vital Signs: Vital Signs Temperature 98.8 F 10/22/22 15:49 Pulse Rate 78 10/22/22 15:49 Respiratory Rate 18 10/22/22 15:49 Blood Pressure 148/82 H 10/22/22 15:49 Pulse Oximetry 95 10/22/22 15:49 Oxygen Delivery Method 10/22/22 15:49 <DO Jonathan Acosta Last Filed: 10/23/22 17:19> Initial Vital Signs Initial Vital Signs: Vital Signs Temperature 98.8 F 10/22/22 15:49 Pulse Rate 78 10/22/22 15:49 Respiratory Rate 18 10/22/22 15:49 Blood Pressure 148/82 H 10/22/22 15:49 Pulse Oximetry 95 10/22/22 15:49 Oxygen Delivery Method 10/22/22 15:49 Course <Stephanie Padron PA-C - Last Filed: 10/22/22 19:44> Vital Signs Vital signs: Vital Signs - 8 hr 10/22/22 15:49 Temperature 98.8 F Pulse Rate 78 Respiratory Rate 18 Blood Pressure 148/82 H Pulse Oximetry 95 Oxygen Delivery Method Room Air <DO Jonathan Acosta Last Filed: 10/23/22 17:19> Vital Signs Vital signs: Vital Signs - 8 hr 10/22/22 15:49 Temperature 98.8 F Pulse Rate 78 Respiratory Rate 18 Blood Pressure 148/82 H Pulse Oximetry 95 Oxygen Delivery Method Room Air MDM - Nausea/Vomiting/Diarrhea <PEDRO Nolasco Last Filed: 10/22/22 19:44> MDM Narrative Medical decision making narrative: 52-year-old male with no reported past medical history presents to the ED with 2.5 weeks of diarrhea. Patient appears well, no signs of dehydration, exacerbated diarrhea likely side-effect of antibiotic. Reassuring that there is no melena or hematochezia. Stool studies were negative from 3 days ago. Recommend stopping the antibiotic. Recommend BR a T diet. Recommend Imodium. Recommend continued hydration. ED return precautions were discussed with patient. Patient verbalized understanding. ? Corroborating data: n/a Data collected from:? Patient ? Medical records reviewed:??Yes ? Differential considered:??As above ? Exam documented above, pertinent findings include:? ? Lab Test results independently reviewed as above. Pertinent findings: ? Independently reviewed EKG as above: n/a ? Imaging studies independently reviewed:n/a ? Consultations:n/a ? Treatments: Brat diet, Imodium ? Re-evaluations:n/a ? Discussion: As above ? Diagnosis: Gastroenteritis ? Disposition: see below, along with detailed discharge instructions that have been reviewed with patient as well as indications for ED re-evaluation and additional outpatient follow up Discharge Plan Departure Patient Disposition: Home Clinical Impression: Gastroenteritis Instructions: DI for Viral Gastroenteritis -- Adult Activity Restrictions/Additional Instructions: You were evaluated in the ED today for diarrhea, nausea. It appears that the antibiotic ciprofloxacin that you were taking has exacerbated you diarrhea. Your stool studies did not detect a bacterial infection, and it is safe for you to stop the antibiotic. Please follow the BRAT diet which consists of bread, rice, apples, toast to slow down your diarrhea. Please avoid foods that are acidic or high in fiber such as coffee, alcohol, fruit, vegetables, juice. You may also take Imodium which is available [id number] to slow down your diarrhea. You were losing a lot of water from the diarrhea, so please be sure to drink lots of water. Please return to the ED if your diarrhea does not improve, you are dehydrated, unable to keep food or water down. Prescriptions: No Action omeprazole 20 mg capsule,delayed release(DR/EC) 20 mg PO DAILY MDD 40 Qty: 30 0RF ciprofloxacin HCl [Cipro] 500 mg tablet 500 mg PO BID Qty: 14 0RF Referrals: Miscellaneous,Doctor, [Primary Care Provider] - Stand Alone Forms: Patient Portal/API <Geovany Poe DO - Last Filed: 10/23/22 17:19> [facility] I was immediately available in the department for consultation. This documentation has been reviewed and I agree with assessment and plan. Supervised by Geovany Poe DO
== END 2022-10-22 19:10 | disposition home or self-care (01) ==
PROVIDERS: Emergency Provider Student in an Organized Health Care Education/Training Program
DX: K52.9 Noninfective gastroenteritis and colitis, unspecified (principal)
CPT/HCPCS: 99281

== ENCOUNTER 2023-09-10 11:10 | Emergency (ER) | payer OTHER, MEDICAID, SELFPAY ==
[2023-09-10 11:14] VITALS: BP 155/90; PULSE 95; RESP 18; TEMP 36.9; O2SAT 97; BMI 27.6
--- NOTE | 2023-09-10 11:55 | PC.NURSE ---
Pt presents to ED today with right lower quadrant pain that started this morning around 0200. Pt have been experiencing severe pain that he describes as sharp and tender and as a 6/10. Pain is worse with movement and pt has expeirenced some associated nausea & diarrhea. Pt denies fever. Denies cp & sob. A&ox4. [employer] intact. VS WNL.
[2023-09-10 11:58] VITALS: BP 134/92; PULSE 78; RESP 20; TEMP 37; O2SAT 98
[2023-09-10 12:01] LABS: Alanine Aminotransferase 43 IU/L (<50); Albumin 4.4 g/dL (3.5-5.0); Albumin Globulin Ratio 1.3 (1.0-2.8); Alkaline Phosphatase 80 U/L (38-126); Aspartate Aminotransferase 29 IU/L (17-59); BUN Creatinine Ratio 21.2 (6-22); Bilirubin Total 0.8 mg/dL (0.2-1.3); Blood Urea Nitrogen 21 mg/dL (9-20); Carbon Dioxide 26 mmol/L (22-32); Chloride 102 mmol/L (98-107); Estimated Glomerular Filt Rate > 60 mL/min (>60); Globulin 3.4 g/dL (1.7-4.1); Glucose 112 mg/dL (70-100); HEMOLYSIS < 15 (0-50); Lipase 39 U/L (23-300); Potassium 3.8 mmol/L (3.4-5.1); Sodium 135 mmol/L (137-145); Total Protein 7.8 g/dL (6.3-8.2)
[2023-09-10 12:20] LABS: Add Manual Diff / Slide Review NO; Basophils Absolute Auto 0 /uL (0-100); Basophils Percent Auto 0.4 % (0-2); Eosinophils Absolute Auto 0 /uL (0-450); Eosinophils Percent Auto 0.3 % (2-4); Hematocrit 45.7 % (41-53); Hemoglobin 15.6 g/dL (13.5-17.5); Lymphocytes Absolute Auto 1100 /uL (1100-4500); Lymphocytes Percent Auto 10.9 % (25-40); Mean Corpuscular HGB Conc 34.2 % (30-36); Mean Corpuscular Hemoglobin 29.6 PG (26-34); Mean Corpuscular Volume 86.5 fL (80-100); Monocytes Absolute Auto 800 /uL (0-900); Monocytes Percent Auto 7.2 % (3-14); Neutrophils Absolute Auto 8500 /uL (1500-7000); Neutrophils Percent Auto 81.2 % (50-75); Platelet Count 220 X10^3/uL (150-400); Red Blood Cell Count 5.29 X10^6/uL (4.5-5.9); Red Cell Distribution Width 13.4 % (11.6-14.8); White Blood Cell Count 10.4 X10^3/uL (4.5-11.0)
--- NOTE | 2023-09-10 12:21 | DI.CT.S_ITS ---
PROCEDURE: CT ABDOMEN PELVIS WO CON INDICATIONS: RLQ PAIN TECHNIQUE: Axial sections were acquired from the lung bases to the pubic symphysis. Coronal and sagittal reformats were performed. For radiation dose reduction, the following was used: automated exposure control, adjustment of mA and/or kV according to patient size. COMPARISON: [facility], CT, CT ABDOMEN PELVIS WITH/WITHOUT CONTRAST, 11/06/2022, 13:02. FINDINGS: Image quality: Excellent. Lung bases: Unremarkable. Heart: No significant findings. URINARY: Right Kidney: No stones or hydronephrosis. Right Ureter: No hydroureter. Left Kidney: No stones or hydronephrosis. Left Ureter: No hydroureter. Bladder: Normal wall thickness. No stones. ABDOMEN: Liver: No contour-deforming solid mass. Stable small cyst in the posterior right hepatic lobe. Gallbladder: Status post cholecystectomy. Biliary ducts: No biliary dilation. Pancreas: No ductal dilation. Spleen: Size is within normal limits. Adrenal Glands: No adrenal nodules. Stomach and Bowel: Postsurgical changes at the cecal tip from prior appendectomy. Liquid material is seen throughout the colon. Nondilated fluid-filled loops of distal small bowel. No signs of bowel obstruction. Stomach is unremarkable. Peritoneum: No abnormal intraperitoneal fluid. No free air. Ventral Wall: No significant ventral hernia. Abdominal Nodes: No enlarged retroperitoneal or mesenteric lymph nodes. Vessels: Aorta and inferior vena cava are normal in size. PELVIS: Pelvic Organs: Unremarkable. Pelvic Nodes: Unremarkable. Miscellaneous: No inguinal hernias are seen. Bones: Unremarkable. IMPRESSION: 1. Nondilated fluid-filled loops of small bowel could indicate a nonspecific enteritis. Liquid material is seen throughout the colon. Recommend correlation for causes of diarrhea. 2. Status post appendectomy and cholecystectomy. No nephrolithiasis or hydronephrosis. Approved by: Rene Cox M.D. on 09/10/2023 at 12:52
--- NOTE | 2023-09-10 12:22 | ED_ITS ---
HPI - Abdominal Pain General Chief Complaint: Abdominal Pain Stated Complaint: lower R/abd sharp pain Time Seen by Provider: 09/10/23 11:52 Source: patient Mode of arrival: Ambulatory History of Present Illness HPI narrative: 53-year-old male with history of acid reflux presents by private vehicle from home for sharp abdominal pain with nausea and diarrhea. Pain is worse in the right lower quadrant. Patient does report previous history of appendectomy. Has tried to take ibuprofen at home without relief of symptoms. Denies fever. Related Data Previous Rx's Medication Instructions Recorded omeprazole 20 mg capsule,delayed 20 mg PO DAILY #30 caps 03/28/20 release ciprofloxacin HCl 500 mg tablet 500 mg PO BID #14 tabs 10/20/22 (Cipro) ondansetron 4 mg disintegrating 4 mg PO Q8H PRN nausea and 09/10/23 tablet vomiting #30 tabs Allergies Allergy/AdvReac Type Severity Reaction Status Date / Time ibuprofen Allergy Verified 10/22/22 15:49 tramadol Allergy Verified 10/22/22 15:49 Review of Systems Review of Systems Narrative: Negative except as noted above Patient History Medical History (Updated 09/11/23 @ 09:43 by Mecca Brody MD) Pericarditis Social History Smoking Status: Former smoker Smoking Status: Former smoker alcohol intake frequency: 0-2 drinks per day Substance Use Type: does not use Exam Initial Vital Signs Initial Vital Signs: Vital Signs Temperature 98.5 F 09/10/23 11:14 Pulse Rate 95 H 09/10/23 11:14 Respiratory Rate 18 09/10/23 11:14 Blood Pressure 155/90 H 09/10/23 11:14 Pulse Oximetry 97 09/10/23 11:14 Oxygen Delivery Method Room Air 09/10/23 11:14 Const: Awake, alert, no acute distress, nontoxic appearing Eyes: PERRL, EOMI, conjunctiva normal ENT: Atraumatic, dentition normal, mucous membranes moist Cardiac: regular rate, regular rhythm RESP: unlabored, clear bilaterally, no wheezing GI: Atraumatic, soft, generalized tenderness to deep palpation, particularly in right lower quadrant MSK: Atraumatic, full range of motion, pulses equal Skin: Warm, Dry, intact, no rashes Neuro: AO x3, CN II-XII grossly intact, moves all extremities Psych: affect normal, mood normal, not suicidal, not homicidal Course Course Course Narrative: Right lower quadrant abdominal pain with nausea and diarrhea. Abdomen is soft but he does have tenderness in the right lower quadrant. Question enteritis versus possible kidney stone, however patient has no CVA tenderness. We will order noncontrast CT scan for assessment. Orders Ordered: Discontinued Medications Sodium Chloride (Normal Saline 0.9%) 1,000 mls @ 1,000 mls/hr IV BOLUS ONE Stop: 09/10/23 13:20 Last Admin: 09/10/23 12:45 Dose: 1,000 mls/hr Documented By: HAYDE Ketorolac Tromethamine (Ketorolac 30 Mg/Ml Vial) 15 mg IV NOW ONE Stop: 09/10/23 12:22 Last Admin: 09/10/23 12:46 Dose: 15 mg Documented By: HAYDE Ondansetron HCl (Ondansetron 4 Mg Odt) 4 mg PO NOW PRN PRN Reason: Nausea And Vomiting Ondansetron HCl (Ondansetron 4 Mg/2 Ml Inj) 4 mg IV NOW PRN PRN Reason: Nausea And Vomiting Reevaluation(s) Reevaluation #1: Patient resting comfortably in bed. CT imaging shows possible enteritis, no stones identified. Patient counseled of all lab and imaging findings. This is likely a viral enteriti and will resolve with conservative management. Nausea medication sent to pharmacy of choice. ED return precautions discussed at bedside. Patient expressed understanding of the plan and is in agreement at this time. All questions answered at the time of discharge. Vital Signs Vital signs: Vital Signs - 8 hr 09/10/23 11:14 09/10/23 11:58 Temperature 98.5 F 98.6 F Pulse Rate 95 H 78 Respiratory Rate 18 20 Blood Pressure 155/90 H 134/92 H Pulse Oximetry 97 98 Oxygen Delivery Method Room Air Room Air MDM - Abdominal Pain Differential Diagnosis Differential diagnosis: Likely abdominal pain, constipation and pancreatitis Lab Data 09/10/23 12:11 09/10/23 Unknown Labs: Lab Results 09/10/23 09/10/23 Range/Units 12:11 Unknown WBC 10.4 (4.5-11.0) X10^3/uL RBC 5.29 (4.5-5.9) X10^6/uL Hgb 15.6 (13.5-17.5) g/dL Hct 45.7 (41-53) % MCV 86.5 (80-100) fL MCH 29.6 (26-34) PG MCHC 34.2 (30-36) % RDW 13.4 (11.6-14.8) % Plt Count 220 (150-400) X10^3/uL Neut % (Auto) 81.2 H (50-75) % Lymph % (Auto) 10.9 L (25-40) % [place] % (Auto) 7.2 (3-14) % Eos % (Auto) 0.3 L (2-4) % Baso % (Auto) 0.4 (0-2) % Neut # (Auto) 8500 H (3339-7219) /uL Lymph # (Auto) 1100 (4038-6416) /uL [place] # (Auto) 800 (0-900) /uL Eos # (Auto) 0 (0-450) /uL Baso # (Auto) 0 (0-100) /uL Sodium 135 L (137-145) mmol/L Potassium 3.8 (3.4-5.1) mmol/L Chloride 102 (98-107) mmol/L Carbon Dioxide 26 (22-32) mmol/L BUN 21 H (9-20) mg/dL Creatinine 0.99 (0.66-1.25) mg/dL Estimated GFR > 60 (>60) mL/min BUN/Creatinine Ratio 21.2 (6-22) Glucose 112 H (70-100) mg/dL Calcium 9.0 (8.4-10.2) mg/dL Total Bilirubin 0.8 (0.2-1.3) mg/dL AST 29 (17-59) IU/L ALT 43 (<50) IU/L Alkaline Phosphatase 80 (38-126) U/L Total Protein 7.8 (6.3-8.2) g/dL Albumin 4.4 (3.5-5.0) g/dL Globulin 3.4 (1.7-4.1) g/dL Albumin/Globulin Ratio 1.3 (1.0-2.8) Lipase 39 (23-300) U/L Discharge Plan Departure Patient Disposition: Home Clinical Impression: Gastroenteritis Abdominal pain Qualifiers: Abdominal location: right lower quadrant Qualified Code(s): R10.31 - Right lower quadrant pain Instructions: DI for Enteritis Prescriptions: New ondansetron 4 mg tablet,disintegrating 4 mg PO Q8H PRN (Reason: nausea and vomiting) Qty: 30 0RF No Action omeprazole 20 mg capsule,delayed release(DR/EC) 20 mg PO DAILY MDD 40 Qty: 30 0RF ciprofloxacin HCl [Cipro] 500 mg tablet 500 mg PO BID Qty: 14 0RF Referrals: Miscellaneous,Doctor, MD [Primary Care Provider] - Stand Alone Forms: Patient Portal/API
[2023-09-10] MEDS: SODIUM CHLORIDE 0.9% 1,000 ML 1000 ML IV (12:45)
[2023-09-10] MEDS: KETOROLAC 30 MG/ML VIAL 15 MG IV (12:46)
[2023-09-10 13:09] VITALS: BP 132/89; RESP 20; O2SAT 100
== END 2023-09-10 13:10 | disposition home or self-care (01) ==
PROVIDERS: Emergency Provider Emergency Medicine
DX: K52.9 Noninfective gastroenteritis and colitis, unspecified (principal); Z90.49 Acquired absence of other specified parts of digestive tract
CPT/HCPCS: 36415; 74176; 80053; 83690; 85025; 96361; 96374; 96375; 99284; J1885

== ENCOUNTER 2025-02-26 18:29 | Emergency (ER) | payer MEDICAID, OTHER, SELFPAY ==
[2025-02-26 18:39] VITALS: BP 143/76; PULSE 77; RESP 16; TEMP 36.8; O2SAT 97; BMI 25.0
--- NOTE | 2025-02-26 19:01 | PC.NURSE ---
Case discussed w/ MD Hui who stated he will wait to see pt before orders are put in
--- NOTE | 2025-02-28 04:42 | ED.HA ---
HPI - Headache General Chief Complaint: Headache Stated Complaint: head should and arm px Related Data Previous Rx's Medication Instructions Recorded omeprazole 20 mg capsule,delayed 20 mg PO DAILY #30 caps 03/28/20 release ciprofloxacin HCl 500 mg tablet 500 mg PO BID #14 tabs 10/20/22 (Cipro) ondansetron 4 mg disintegrating 4 mg PO Q8H PRN nausea and 09/10/23 tablet vomiting #30 tabs Allergies Allergy/AdvReac Type Severity Reaction Status Date / Time ibuprofen Allergy Abdominal Verified 02/26/25 18:38 Pain tramadol Allergy Palpitation Verified 02/26/25 18:38 s Patient History Medical History (Updated 02/26/25 @ 21:33 by Danya John RN) Pericarditis Social History Smoking Status: Former smoker Smoking Status: Former smoker alcohol intake frequency: 0-2 drinks per day Exam Initial Vital Signs Initial Vital Signs: Vital Signs Temperature 98.3 F 02/26/25 18:39 Pulse Rate 77 02/26/25 18:39 Respiratory Rate 16 02/26/25 18:39 Blood Pressure 143/76 H 02/26/25 18:39 Pulse Oximetry 97 02/26/25 18:39 Oxygen Delivery Method Room Air 02/26/25 18:39 Discharge Plan Departure Patient Disposition: Left Without Being Seen Clinical Impression: Patient left without being seen Prescriptions: No Action omeprazole 20 mg capsule,delayed release(DR/EC) 20 mg PO DAILY MDD 40 Qty: 30 0RF ciprofloxacin HCl [Cipro] 500 mg tablet 500 mg PO BID Qty: 14 0RF ondansetron 4 mg tablet,disintegrating 4 mg PO Q8H PRN (Reason: nausea and vomiting) Qty: 30 0RF
== END 2025-02-26 21:32 | disposition left against medical advice (07) ==
PROVIDERS: Emergency Provider Family Medicine
DX: R51.9 Headache, unspecified (principal)
CPT/HCPCS: 99281